=== PATIENT | female | born 1990 | race Hispanic/Latino ===

== ENCOUNTER 2018-07-31 09:20 | Emergency (ER) | payer SELFPAY ==
--- OUTSIDE RECORDS SUMMARY | 2018-07-31 09:23 | XMS REPORT ---
:1990 [facility] Address [address] [place] [address] Dr. Rosales [address] [place] [id number] Care Team Providers Name Role Phone Unavailable Unavailable Unavailable Problems This patient has no known problems. Allergies, Adverse Reactions, Alerts This patient has no known allergies or adverse reactions. Medications This patient has no known medications.
--- NOTE | 2018-07-31 10:55 | EDPHYS ---
Physician Documentation [facility] Name: Connie Peters Age: 28 yrs Sex: Female : 1990 Arrival Date: 07/31/2018 Time: 09:21 Bed 23 Private MD: ED Physician Jordin Juarez HPI: 07/31 10:30 This 28 yrs old Female presents to ER via Ambulatory with complaints of Panic ps1 attack, Medication Refill. 10:30 Patient states that she is out of her anti-depressant medication for the last 5 days. ps1 She states that she had a panic attack this morning. She sees Dr. Shoemaker in [place], has not met appointments and has not arranged for her car to get fixed or other means of transportation. She does not have the prescription strength or frequency for the medications that she takes. She does not appear in distress at this time. . 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 - Social history:: Smoking status: Patient/guardian denies using tobacco, Patient/guardian denies using alcohol. - Ebola Screening: : Patient negative for fever greater than or equal to 101.5 degrees Fahrenheit, and additional compatible Ebola Virus Disease symptoms Patient denies exposure to infectious person Patient denies travel to an Ebola-affected area in the 21 days before illness onset. ROS: 10:50 Constitutional: Negative for fever, chills, and weight loss, Eyes: Negative for injury, ps1 pain, redness, and discharge, Cardiovascular: Negative for chest pain, palpitations, and edema, Respiratory: Negative for shortness of breath, cough, wheezing, and pleuritic chest pain, Abdomen/GI: Negative for abdominal pain, nausea, vomiting, diarrhea, and constipation, MS/Extremity: Negative for injury and deformity, Skin: Negative for injury, rash, and discoloration, Neuro: Negative for headache, weakness, numbness, tingling, and seizure. 10:50 Psych: Positive for anxiety. Exam: 10:50 Constitutional: This is a well developed, well nourished patient who is awake, alert, ps1 and in no acute distress. Head/Face: Normocephalic, atraumatic. Eyes: Pupils equal round and reactive to light, extra-ocular motions intact. Lids and lashes normal. Conjunctiva and sclera are non-icteric and not injected. Cardiovascular: Regular rate and rhythm. No gallops, murmurs, or rubs. Normal PMI, no JVD. No pulse deficits. Respiratory: Lungs have equal breath sounds bilaterally, clear to auscultation and percussion. No rales, rhonchi or wheezes noted. No increased work of breathing, no retractions or nasal flaring. Abdomen/GI: Soft, non-tender, with normal bowel sounds. No distension or tympany. No guarding or rebound. No evidence of tenderness throughout. Skin: Warm, dry with normal turgor. Normal color with no rashes, no lesions, and no evidence of cellulitis. MS/ Extremity: Pulses equal, no cyanosis. Neurovascular intact. Full, normal range of motion. Neuro: Awake and alert, GCS 15, oriented to person, place, time, and situation. Cranial nerves II-XII grossly intact. Sensory grossly intact. Psych: Awake, alert, with orientation to person, place and time. Behavior, mood, and affect are within normal limits. Vital Signs: 09:43 BP 129 / 78; Pulse 89; Resp 18; Temp 98.2(O); Pulse Ox 100% on R/A; Weight 90.72 kg; hj Height 5 ft. 0 in. (152.40 cm); Pain 0/10; 09:43 Body Mass Index 39.06 (90.72 kg, 152.40 cm) MDM: 10:50 Data reviewed: vital signs, nurses notes, and as a result, I will discharge patient. ED ps1 course: Pt called Psych office and RN confirmed rx. However, patient has not followed up for over a year. Will give one week of medications and discharge patient. . 10:54 Patient medically screened. ps1 Administered Medications: No medications were administered Disposition: 07/31/18 10:54 Discharged to Home. Impression: Medication Non-Compliance, Panic Attack, Anxiety. - Condition is Stable. - Discharge Instructions: Generalized Anxiety Disorder. - Prescriptions for trazodone 100 mg Oral tablet - take 1 tablet by ORAL route Every night; 7 tablet. Celexa 20 mg Oral Tablet - take 1.5 tablet by ORAL route once daily; 12 tablet. - Medication Reconciliation Form, Thank You Letter, Antibiotic Education, Prescription Opioid Use form. - Follow up: Private Physician; When: Psychiatry-Dr. Shoemaker. Follow up: Emergency Department; When: As needed; Reason: Worsening of condition. - Problem is chronic. - Symptoms have worsened. Signatures: Kimberley Gupta RN RN aj1 Vishal Robertson RN RN hj Jordin Juarez MD MD ps1 Corrections: (The following items were deleted from the chart) 11:01 10:54 07/31/2018 10:54 Discharged to Home. Impression: Medication Non-Compliance; Panic aj1 Attack; Anxiety. Condition is Stable. Forms are Medication Reconciliation Form, Thank You Letter, Antibiotic Education, Prescription Opioid Use. Follow up: Private Physician; When: Psychiatry-Dr. Shoemaker. Follow up: Emergency Department; When: As needed; Reason: Worsening of condition. Problem is chronic. Symptoms have worsened. ps1
--- NOTE | 2018-07-31 10:55 | ER ---
Nurse's Notes [facility] Name: Connie Peters Age: 28 yrs Sex: Female : 1990 Arrival Date: 07/31/2018 Time: 09:21 Bed 23 Private MD: Diagnosis: Medication Non-Compliance;Panic Attack;Anxiety Presentation: 07/31 09:40 Presenting complaint: Patient states: i think i have anxiety flare up today, i felt hj dizzy, im felt overwhelm today, my hear is raising; im on a lot of stress lately; hx o of depression; denies hurting self and other; reports N/V; been out of meds for 3-4 days ago;. Transition of care: patient was not received from another setting of care. Onset of symptoms was July 31, 2018. Risk Assessment: Do you want to hurt yourself or someone else? Patient reports no desire to harm self or others. Initial Sepsis Screen: Does the patient meet any 2 criteria? No. Patient's initial sepsis screen is negative. Does the patient have a suspected source of infection? No. Patient's initial sepsis screen is negative. Care prior to arrival: None. 09:40 Method Of Arrival: Ambulatory 09:40 Acuity: KYM 4 hj Triage Assessment: 09:43 General: Appears in no apparent distress. uncomfortable, Behavior is calm, cooperative, hj appropriate for age. Pain: Denies pain. 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 - Social history:: Smoking status: Patient/guardian denies using tobacco, Patient/guardian denies using alcohol. - Ebola Screening: : Patient negative for fever greater than or equal to 101.5 degrees Fahrenheit, and additional compatible Ebola Virus Disease symptoms Patient denies exposure to infectious person Patient denies travel to an Ebola-affected area in the 21 days before illness onset. Screenin:43 Abuse screen: Denies threats or abuse. Denies injuries from another. Nutritional hj screening: No deficits noted. Tuberculosis screening: No symptoms or risk factors identified. Fall Risk None identified. Assessment: 10:03 General: Appears comfortable, Behavior is cooperative, anxious, crying. Pain: Denies aj1 pain. Neuro: Level of Consciousness is awake, alert, obeys commands, Oriented to person, place, time, situation, Moves all extremities. Full function Gait is steady, Speech is normal, Facial symmetry appears normal, Reports dizziness. Neuro: Reports Patient reports having an episode this morning where she felt overwhelmed, like everything going on in her life was too much to handle and she started to feel dizzy and have palpitations. Patient reports a history of anxiety, states that these are her normal anxiety symptoms but this episode is much more severe than her past episodes. Patient states that she is under a lot of acute stress at the moment.. Cardiovascular: Reports palpitations, Patient's skin is warm and dry. Respiratory: Airway is patent Respiratory effort is even, unlabored, Respiratory pattern is regular, symmetrical. GI: No signs and/or symptoms were reported involving the gastrointestinal system. : No signs and/or symptoms were reported regarding the genitourinary system. EENT: No signs and/or symptoms were reported regarding the EENT system. Derm: No signs and/or symptoms reported regarding the dermatologic system. Skin is pink, warm \T\ dry. normal. Musculoskeletal: No signs and/or symptoms reported regarding the musculoskeletal system. Circulation, motion, and sensation intact. 11:01 Reassessment: Patient appears in no apparent distress at this time. No changes from aj1 previously documented assessment. Patient and/or family updated on plan of care and expected duration. Pain level reassessed. Patient is alert, oriented x 3, equal unlabored respirations, skin warm/dry/pink. Vital Signs: 09:43 BP 129 / 78; Pulse 89; Resp 18; Temp 98.2(O); Pulse Ox 100% on R/A; Weight 90.72 kg; hj Height 5 ft. 0 in. (152.40 cm); Pain 0/10; 09:43 Body Mass Index 39.06 (90.72 kg, 152.40 cm) ED Course: 09:21 Patient arrived in ED. as 09:42 Triage completed. hj 09:43 Arm band placed on right wrist. hj 09:45 Patient has correct armband on for positive identification. Placed in gown. Bed in low hj position. Call light in reach. Side rails up X 1. 10:02 Jordin Juarez MD is Attending Physician. ps1 10:03 Kimberley Gupta, RN is Primary Nurse. aj1 10:03 No provider procedures requiring assistance completed. aj1 11:01 Patient did not have IV access during this emergency room visit. aj1 Administered Medications: No medications were administered Outcome: 10:54 Discharge ordered by MD. ps1 11:01 Discharged to home ambulatory. aj1 11:01 Condition: good 11:01 Discharge instructions given to patient, Instructed on discharge instructions, follow up and referral plans. medication usage, Demonstrated understanding of instructions, follow-up care, medications, Prescriptions given X 2. 11:01 Patient left the ED. aj1 Signatures: Kimberley Gupta, [place] RN Isis Ayala Henry, RN RN Jordin Juarez MD MD ps1 Corrections: (The following items were deleted from the chart) 09:42 09:39 Presenting complaint: hj hj 09:45 09:43 Pulse 89bpm; Resp 18bpm; Pulse Ox 100% RA; Temp 98.2F Oral; 90.72 kg; Height 5 hj ft. 0 in.; BMI: 39.0; Pain 0/10; hj
[2018-07-31 11:14] VITALS: BP 129/78; TEMP 98.2; O2SAT 100
== END 2018-07-31 11:01 | disposition home or self-care (01) ==
LOC: ER 09:20
DX: Z91.19 Patient's noncompliance with other medical treatment and regimen (principal); F41.0 Panic disorder [episodic paroxysmal anxiety]; F41.9 Anxiety disorder, unspecified; J45.909 Unspecified asthma, uncomplicated; F32.9 Major depressive disorder, single episode, unspecified; Z88.0 Allergy status to penicillin; Z76.0 Encounter for issue of repeat prescription
CPT/HCPCS: 99282

== ENCOUNTER 2018-11-11 23:29 | Emergency (ER) | payer SELFPAY ==
--- OUTSIDE RECORDS SUMMARY | 2018-11-11 23:31 | XMS REPORT ---
:1990 [facility] Address [address] [place] [address] Dr. Rosales [address] [place] [address] Care Team Providers Name Role Phone Unavailable Unavailable Unavailable Problems This patient has no known problems. Allergies, Adverse Reactions, Alerts This patient has no known allergies or adverse reactions. Medications This patient has no known medications.
[2018-11-12 02:11] LABS: Absolute Lymphocytes (CBC) 3.1 K/uL (0.7-4.9); Basophils % 0.6 % (0-1.3); Hematocrit 40.3 % (36.0-45.0); Lymphocytes % 35.9 % (15.3-44.8); MPV 9.1 fL (7.6-11.3); Monocytes % 7.6 % (3.3-12.3); RBC Red Blood Cell Count 4.59 M/uL (3.86-4.86)
[2018-11-12] MEDS ORDERED: FAMOTIDINE 20 MG/2 ML VIAL IV ONE (02:21)
[2018-11-12] MEDS ORDERED: KETOROLAC 30 MG/ML INJ ONE (02:21)
[2018-11-12] MEDS ORDERED: ONDANSETRON 4 MG/2 ML VIAL ONE (02:21)
[2018-11-12 02:28] LABS: ALT/SGPT 24 U/L (12-78); AST/SGOT 12 U/L (15-37); Albumin 3.9 g/dL (3.4-5.0); Alkaline Phosphatase 62 U/L (45-117); BUN Blood Urea Nitrogen 11 mg/dL (7-18); Bicarbonate 29 mmol/L (21-32); Bilirubin Direct < 0.1 mg/dL (0-0.2); Bilirubin Total 0.3 mg/dL (0.2-1.0); Glucose Level 90 mg/dL (74-106); Lipase 460 U/L (73-393); Potassium 3.6 mmol/L (3.5-5.1); Protein, Total 7.5 g/dL (6.4-8.2); Sodium Level 142 mmol/L (136-145)
[2018-11-12 05:30] LABS: Urine Blood 3+ (NEG); Urine Glucose NEGATIVE (NEG); Urine Protein TRACE (NEG); Urine Specific Gravity >1.030 (1.005-1.030); Urine pH 5.5 (5.0-7.0)
[2018-11-12 05:30] LABS: Calcium Oxalate Crystals- Ur MODERATE (NONE SEEN); Urine Bacteria <20 /HPF (<20); Urine Culture Reflex Order NOT NEEDED; Urine Mucus 2+ /HPF (NONE SEEN); Urine RBC NONE SEEN /HPF (NONE SEEN)
--- NOTE | 2018-11-12 05:36 | ER ---
Nurse's Notes [facility] Name: Connie Peters Age: 28 yrs Sex: Female : 1990 Arrival Date: 11/11/2018 Time: 23:33 Bed 16 Private MD: Diagnosis: acute right upper quadrant abdominal pain;vomiting Presentation: 11/11 23:40 Presenting complaint: Patient states: Diarrhea for one week, vomiting yesterday, RUQ la1 pain that started today. Transition of care: patient was not received from another setting of care. Onset of symptoms was November 11, 2018. Risk Assessment: Do you want to hurt yourself or someone else? Patient reports no desire to harm self or others. Initial Sepsis Screen: Does the patient meet any 2 criteria? No. Patient's initial sepsis screen is negative. Does the patient have a suspected source of infection? No. Patient's initial sepsis screen is negative. Care prior to arrival: None. 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 - Social history:: Smoking status: Patient/guardian denies using tobacco. - Ebola Screening: : No symptoms or risks identified at this time. - Family history:: not pertinent. - Hospitalizations: : No recent hospitalization is reported. Screenin/08 01:15 Abuse screen: Denies threats or abuse. Nutritional screening: No deficits noted. jb4 Tuberculosis screening: No symptoms or risk factors identified. Fall Risk None identified. Assessment: 01:15 General: Appears in no apparent distress. uncomfortable, Behavior is calm, cooperative, jb4 appropriate for age. Pain: Complains of pain in abdomen Pain does not radiate. Pain currently is 9 out of 10 on a pain scale. Quality of pain is described as sharp. Neuro: Level of Consciousness is awake, alert, obeys commands, Oriented to person, place, time, situation. Cardiovascular: Patient's skin is warm and dry. Respiratory: Airway is patent Respiratory effort is even, unlabored, Respiratory pattern is regular, symmetrical. GI: Abdomen is non-distended, obese, Bowel sounds present X 4 quads. Abd is soft X 4 quads Abd is non tender in left upper quadrant, right lower quadrant and left lower quadrant Abdomen is tender to palpation in right upper quadrant Reports diarrhea, nausea, vomiting. : No signs and/or symptoms were reported regarding the genitourinary system. EENT: No signs and/or symptoms were reported regarding the EENT system. Derm: Skin is intact, Skin is pink, warm \T\ dry. Musculoskeletal: Circulation, motion, and sensation intact. Range of motion: intact in all extremities. 02:15 Reassessment: Patient appears in no apparent distress at this time. Patient and/or jb4 family updated on plan of care and expected duration. Pain level reassessed. Patient is alert, oriented x 3, equal unlabored respirations, skin warm/dry/pink. 03:15 Reassessment: Patient appears in no apparent distress at this time. Patient and/or jb4 family updated on plan of care and expected duration. Pain level reassessed. Pt is resting in bed with eyes closed, no s/s of pain or distress noted. respirations even and unlabored. 04:15 Reassessment: Patient appears in no apparent distress at this time. No changes from jb4 previously documented assessment. Patient and/or family updated on plan of care and expected duration. Pain level reassessed. 05:48 Reassessment: Patient appears in no apparent distress at this time. Patient and/or jb4 family updated on plan of care and expected duration. Pain level reassessed. Patient is alert, oriented x 3, equal unlabored respirations, skin warm/dry/pink. Pt ambulated out of ED with significant other w/ steady gait, verbalized understanding of d/c and follow up instructions, denies questions or concerns. Vital Signs: 11/11 23:39 BP 121 / 86; Pulse 55; Resp 16; Temp 97.4; Pulse Ox 98% on R/A; Weight 90.72 kg; Height la1 5 ft. 4 in. (162.56 cm); 11/12 01:10 BP 120 / 81; Pulse 59; Resp 16; Pulse Ox 95% on R/A; mt 02:36 BP 119 / 86; Pulse 50; Resp 14; Pulse Ox 97% on R/A; mt 03:33 BP 109 / 71; Pulse 60; Resp 16; Pulse Ox 99% on R/A; jb4 04:08 BP 105 / 62; Pulse 52; Resp 16; Pulse Ox 96% on R/A; mt 05:54 BP 101 / 60; Pulse 61; Resp 16; Pulse Ox 97% on R/A; jb4 11/11 23:39 Body Mass Index 34.33 (90.72 kg, 162.56 cm) la1 ED Course: 11/11 23:33 Patient arrived in ED. am2 23:39 Arm band placed on right wrist. la1 23:41 Triage completed. la1 11/12 00:59 Colt Casey, RN is Primary Nurse. jb4 01:15 Silver De León MD is Attending Physician. wa 01:15 Patient has correct armband on for positive identification. Placed in gown. Bed in low jb4 position. Call light in reach. Side rails up X 1. Pulse ox on. NIBP on. 01:18 Urine collected: clean catch specimen, cloudy. Inserted saline lock: 20 gauge in left mt antecubital area, using aseptic technique. Blood collected. 02:07 Radiology exam delayed due to lab results not completed at this time. (BUN/Creatinine) mw3 test not completed at this time. 03:05 CT Abd/Pelvis - IV Contrast Only In Process Unspecified. EDMS 05:35 Silver Ibarra MD is Referral Physician. mt 05:57 No provider procedures requiring assistance completed. IV discontinued, intact, jb4 bleeding controlled, No redness/swelling at site. Pressure dressing applied. Administered Medications: 02:00 Drug: TORadol 30 mg Route: IVP; Site: left antecubital; jb4 05:53 Follow up: Response: No adverse reaction; Pain is decreased jb4 02:01 Drug: Pepcid 20 mg Route: IVP; Site: left antecubital; jb4 02:30 Follow up: Response: No adverse reaction jb4 02:02 Drug: Zofran 4 mg Route: IVP; Site: left antecubital; jb4 02:30 Follow up: Response: No adverse reaction; Nausea is decreased jb4 Outcome: 05:35 Discharge ordered by . wa 05:57 Discharged to home ambulatory, with significant other. [facility] [place] 05:57 Discharge instructions given to patient, significant other, Instructed on discharge instructions, follow up and referral plans. medication usage, Demonstrated understanding of instructions, follow-up care, medications, Prescriptions given X 3. 05:57 Condition: stable jb4 05:58 Patient left the ED. jb4 Signatures: Dispatcher [employer] EDMS José Del Real, RN RN la1 Colt Casey RN RN jb4 Giulia Stanford am2 Ayla Quintana nm Silver De León MD MD wa Willis, Michelle 3 Corrections: (The following items were deleted from the chart) 05:53 02:30 Response: No adverse reaction; Nausea is decreased jb4 jb4 05:55 05:48 Reassessment: Patient appears in no apparent distress at this time. Patient jb4 and/or family updated on plan of care and expected duration. Pain level reassessed. Patient is alert, oriented x 3, equal unlabored respirations, skin warm/dry/pink. jb4 05:56 02:36 BP 109 / 71; Pulse 60bpm; Resp 16bpm; Pulse Ox 99% RA; mt jb4
--- NOTE | 2018-11-12 05:36 | EDPHYS ---
Physician Documentation [facility] Name: Connie Peters Age: 28 yrs Sex: Female : 1990 Arrival Date: 11/11/2018 Time: 23:33 Bed 16 Private MD: ED Physician Silver De León HPI: 11/12 04:21 This 28 yrs old Female presents to ER via Ambulatory with complaints of wa Abdominal Pain. 04:24 This 28 yrs old Female presents to ER via Ambulatory with complaints of wa Abdominal Pain. 04:24 The patient presents with abdominal pain in the epigastric area, in the right upper wa quadrant. Onset: The symptoms/episode began/occurred 1 day(s) ago. The symptoms radiate to Associated signs and symptoms: Pertinent positives: nausea and vomiting, Pertinent negatives: diarrhea, dysuria, fever. The symptoms are described as dull. Modifying factors: The symptoms are alleviated by nothing, the symptoms are aggravated by nothing. Severity of pain: At its worst the pain was moderate in the emergency department the pain is unchanged. The patient has not experienced similar symptoms in the past. The patient has not recently seen a physician. states R sided pain that radiate to back with assoc vomiting. denies SOB. . 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 - Social history:: Smoking status: Patient/guardian denies using tobacco. - Ebola Screening: : No symptoms or risks identified at this time. - Family history:: not pertinent. - Hospitalizations: : No recent hospitalization is reported. ROS: 11/12 04:26 Constitutional: Negative for fever, chills, and weight loss, Eyes: Negative for injury, wa pain, redness, and discharge, ENT: Negative for injury, pain, and discharge, Neck: Negative for injury, pain, and swelling, Cardiovascular: Negative for chest pain, palpitations, and edema, Respiratory: Negative for shortness of breath, cough, wheezing, and pleuritic chest pain, Back: Negative for injury and pain, : Negative for injury, bleeding, discharge, and swelling, MS/Extremity: Negative for injury and deformity, Skin: Negative for injury, rash, and discoloration, Neuro: Negative for headache, weakness, numbness, tingling, and seizure, Psych: Negative for depression, anxiety, suicide ideation, homicidal ideation, and hallucinations. Abdomen/GI: Positive for abdominal pain, nausea and vomiting, Negative for diarrhea, constipation. All other systems are negative. Exam: 04:26 Constitutional: This is a well developed, well nourished patient who is awake, alert, wa and in no acute distress. Head/Face: Normocephalic, atraumatic. Eyes: Pupils equal round and reactive to light, extra-ocular motions intact. Lids and lashes normal. Conjunctiva and sclera are non-icteric and not injected. Cornea within normal limits. Periorbital areas with no swelling, redness, or edema. ENT: Nares patent. No nasal discharge, no septal abnormalities noted. Tympanic membranes are normal and external auditory canals are clear. Oropharynx with no redness, swelling, or masses, exudates, or evidence of obstruction, uvula midline. Mucous membranes moist. Neck: Trachea midline, no thyromegaly or masses palpated, and no cervical lymphadenopathy. Supple, full range of motion without nuchal rigidity, or vertebral point tenderness. No Meningismus. Chest/axilla: Normal chest wall appearance and motion. Nontender with no deformity. No lesions are appreciated. Cardiovascular: Regular rate and rhythm with a normal S1 and S2. No gallops, murmurs, or rubs. Normal PMI, no JVD. No pulse deficits. Respiratory: Lungs have equal breath sounds bilaterally, clear to auscultation and percussion. No rales, rhonchi or wheezes noted. No increased work of breathing, no retractions or nasal flaring. Back: No spinal tenderness. No costovertebral tenderness. Full range of motion. Skin: Warm, dry with normal turgor. Normal color with no rashes, no lesions, and no evidence of cellulitis. MS/ Extremity: Pulses equal, no cyanosis. Neurovascular intact. Full, normal range of motion. Neuro: Awake and alert, GCS 15, oriented to person, place, time, and situation. Cranial nerves II-XII grossly intact. Motor strength 5/5 in all extremities. Sensory grossly intact. Cerebellar exam normal. Normal gait. 04:26 Abdomen/GI: Inspection: abdomen appears normal, Bowel sounds: normal, in all quadrants, Palpation: moderate abdominal tenderness, in the epigastric area and right upper quadrant. Vital Signs: 11/11 23:39 BP 121 / 86; Pulse 55; Resp 16; Temp 97.4; Pulse Ox 98% on R/A; Weight 90.72 kg; Height la1 5 ft. 4 in. (162.56 cm); 11/12 01:10 BP 120 / 81; Pulse 59; Resp 16; Pulse Ox 95% on R/A; mt 02:36 BP 119 / 86; Pulse 50; Resp 14; Pulse Ox 97% on R/A; mt 03:33 BP 109 / 71; Pulse 60; Resp 16; Pulse Ox 99% on R/A; jb4 04:08 BP 105 / 62; Pulse 52; Resp 16; Pulse Ox 96% on R/A; mt 05:54 BP 101 / 60; Pulse 61; Resp 16; Pulse Ox 97% on R/A; jb4 11/11 23:39 Body Mass Index 34.33 (90.72 kg, 162.56 cm) la1 MDM: 01:15 Patient medically screened. nh 04:26 Differential diagnosis: h/o cholecystectomy. will r/o pancreatitis. consider ductal wa stone. colitis? enteritis?. 05:31 Data reviewed: vital signs, nurses notes, lab test result(s). Test interpretation: by nh ED physician or midlevel provider: CT abd/pelvis: no acute abnml. 05:32 Test interpretation: by ED physician or midlevel provider: labs noted wnl. . Response nh to treatment: the patient's symptoms have markedly improved after treatment. ED course: pain improved. states only a bit sore to touch in the area. . 11/12 01:19 Order name: Basic Metabolic Panel tn 11/12 01:19 Order name: CBC with Diff tn 11/12 01:19 Order name: Creatinine for Radiology tn 11/12 01:19 Order name: Hepatic Function; Complete Time: 03:52 mt 11/12 01:19 Order name: Lipase; Complete Time: 03:52 tn 11/12 01:19 Order name: Urine Dipstick--Ancillary (enter results); Complete Time: 05:32 ar5 11/12 01:19 Order name: Urine --Ancillary (enter results); Complete Time: 05:32 ar5 11/12 01:19 Order name: Basic Metabolic Panel; Complete Time: 03:52 EDMS 11/12 01:19 Order name: CBC with Automated Diff; Complete Time: 03:52 EDMS 11/12 01:20 Order name: Creatinine (Radiology Only); Complete Time: 03:52 EDMS 11/12 01:39 Order name: CT Abd/Pelvis - IV Contrast Only nh 11/12 04:54 Order name: Urine Microscopic Only; Complete Time: 05:32 nh 11/12 01:19 Order name: IV Saline Lock; Complete Time: 01:19 mt 11/12 01:19 Order name: Labs collected and sent; Complete Time: 01:19 mt 11/12 01:19 Order name: Urine Dipstick-Ancillary (obtain specimen); Complete Time: 01:19 mt 11/12 01:19 Order name: Urine Test (obtain specimen); Complete Time: 01:19 mt Administered Medications: 02:00 Drug: TORadol 30 mg Route: IVP; Site: left antecubital; jb4 05:53 Follow up: Response: No adverse reaction; Pain is decreased jb4 02:01 Drug: Pepcid 20 mg Route: IVP; Site: left antecubital; jb4 02:30 Follow up: Response: No adverse reaction jb4 02:02 Drug: Zofran 4 mg Route: IVP; Site: left antecubital; jb4 02:30 Follow up: Response: No adverse reaction; Nausea is decreased jb4 Disposition: 11/12/18 05:35 Discharged to Home. Impression: acute right upper quadrant abdominal pain, vomiting. - Condition is Stable. - Discharge Instructions: Nausea and Vomiting, Adult, [id number], Abdominal Pain, Adult, [id number]. - Prescriptions for Cipro 500 mg Oral Tablet - take 1 tablet by ORAL route every 12 hours for 7 days; 14 tablet. Zofran 4 mg Oral Tablet - take 1 tablet by ORAL route every 12 hours As needed; 20 tablet. Flagyl 500 mg Oral Tablet - take 1 tablet by ORAL route every 8 hours for 7 days; 21 tablet. - Work release form, Medication Reconciliation Form, Thank You Letter, Antibiotic Education, Prescription Opioid Use form. - Follow up: Silver Ibarra MD; When: 1 - 2 days; Reason: Recheck today's complaints. - Problem is new. - Symptoms have improved. - Notes: take medication as prescribed. follow up with the gastro doctor as discussed for further evaluation Signatures: Dispatcher [employer] EDMS José Del Real, RN RN la1 Colt Casey RN RN jb4 Ayla Quintana tn Silver De León MD MD wa Corrections: (The following items were deleted from the chart) 05:58 05:35 11/12/2018 05:35 Discharged to Home. Impression: acute right upper quadrant jb4 abdominal pain; vomiting. Condition is Stable. Forms are Medication Reconciliation Form, Thank You Letter, Antibiotic Education, Prescription Opioid Use. Follow up: Silver Ibarra; When: 1 - 2 days; Reason: Recheck today's complaints. Problem is new. Symptoms have improved. elsa
[2018-11-12 06:09] VITALS: TEMP 97.4
[2018-11-12 06:17] VITALS: BP 101/60; O2SAT 97
--- NOTE | 2018-11-12 10:21 | RAD REPORT ---
EXAM DESCRIPTION: CT - Abdomen Pelvis W Contrast - 11/12/2018 3:55 am CLINICAL HISTORY: The patient is 28 years old and is Female; RUQ abd pain TECHNIQUE: Axial computed tomography images of the abdomen and pelvis with intravenous contrast. S agittal and coronal reformatted images were created and reviewed. This CT exam was performed using one or more of the following dose reduction techniques: automated exposure control, adjustment of t he mA and/or kV according to patient size, and/or use of iterative reconstruction technique. COMPARISON: No relevant prior studies available. FINDINGS: LUNG BASES: Unremarkable. No mass. No consolidation. ABDOMEN: LIVER: Unremarkable. No mass. GALLBLADDER AND BILE DUCTS: Surgical clips are present in the right upper quadrant, consistent w ith previous cholecystectomy. PANCREAS: No ductal dilation. No mass. SPLEEN: Unremarkable. ADRENALS: Unremarkable. No mass. KIDNEYS AND URETERS: Unremarkable. No solid mass. No hydronephrosis. STOMACH AND BOWEL: The stomach is decompressed. The small bowel is normal in caliber. Stool is p resent throughout the colon. Scattered colonic diverticula are noted without surrounding inflammation . There is no bowel obstruction. PELVIS: APPENDIX: The appendix is normal in caliber without surrounding inflammation. BLADDER: The bladder is not well distended. REPRODUCTIVE: Unremarkable as visualized. ABDOMEN and PELVIS: INTRAPERITONEAL SPACE: Unremarkable. No free air. No significant fluid collection. BONES/JOINTS: No acute fracture. SOFT TISSUES: A small 2 cm left ovarian cyst is present. No follow-up imaging is recommended. Th e uterus and right ovary are normal. Small fat-containing ventral wall hernia is present. VASCULATURE: Unremarkable. No abdominal aortic aneurysm. LYMPH NODES: Unremarkable. No enlarged lymph nodes. IMPRESSION: No acute findings on this contrasted CT of the abdomen and pelvis to explain the patient 's symptoms. Chronic findings as above. Electronically signed by: Re Delgado MD 11/12/2018 3:47 AM CDT Due to temporary technical issues with the PACS/[employer] reporting system, reports are being signed by the in house radiologist as a courtesy to ensure prompt reporting. The interpreting radiologist is jessica villalta responsible for the content of the report. Due to temporary technical issues with the PACS/[employer] reporting system, reports are being signed by the in house radiologist as a courtesy to ensure prompt reporting. The interpreting radiologist is jessica villalta responsible for the content of the report.
== END 2018-11-12 05:58 | disposition home or self-care (01) ==
LOC: ER 23:29
DX: R11.10 Vomiting, unspecified (principal); Z88.0 Allergy status to penicillin
CPT/HCPCS: 36415; 74177; 80048; 80076; 81003; 81015; 81025; 83690; 85025; 96374; 96375; 99284; J2405; Q9967

== ENCOUNTER 2019-03-29 10:29 | Emergency (ER) | payer SELFPAY ==
--- OUTSIDE RECORDS SUMMARY | 2019-03-29 10:31 | XMS REPORT ---
:1990 [facility] Address [address] [place] [address] Dr. Rosales [address] [place] [id number] Care Team Providers Name Role Phone Unavailable Unavailable Unavailable Problems This patient has no known problems. Allergies, Adverse Reactions, Alerts This patient has no known allergies or adverse reactions. Medications This patient has no known medications.
[2019-03-29] MEDS ORDERED: hydrOXYzine HCl 25 MG TAB ONE (11:04)
--- NOTE | 2019-03-29 12:13 | EDPHYS ---
Physician Documentation [facility] Name: Connie Peters Age: 28 yrs Sex: Female : 1990 Arrival Date: 03/29/2019 Time: 10:31 Bed 14 Private MD: ED Physician Jose Juan Quiroz HPI: 03/29 11:28 This 28 yrs old Female presents to ER via Ambulatory with complaints of nh Anxiety. 11:28 Onset: The symptoms/episode began/occurred acutely, just prior to arrival. Associated nh signs and symptoms: Pertinent positives: chest pain, shortness of breath, Pertinent negatives: abdominal pain, congestion, constipation, cough, diarrhea, dysuria, earache, fever, headache, nasal discharge, seizure, sore throat, vomiting, wheezing. Modifying factors: The patient symptoms are alleviated by nothing, the patient symptoms are aggravated by nothing. The patient has experienced similar episodes in the past, several times, and the symptoms today are exactly the same, to previous anxiety attack. The patient has not recently seen a physician. Patient was given celexa here before but only takes it when she feels like she needs it. 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 - Social history:: Smoking status: Patient/guardian denies using tobacco. - Ebola Screening: : Patient negative for fever greater than or equal to 101.5 degrees Fahrenheit, and additional compatible Ebola Virus Disease symptoms Patient denies exposure to infectious person Patient denies travel to an Ebola-affected area in the 21 days before illness onset No symptoms or risks identified at this time. ROS: 11:28 Constitutional: Negative for fever, chills, and weight loss, Eyes: Negative for injury, nh pain, redness, and discharge, ENT: Negative for injury, pain, and discharge, Neck: Negative for injury, pain, and swelling, Abdomen/GI: Negative for abdominal pain, nausea, vomiting, diarrhea, and constipation, Back: Negative for injury and pain, : Negative for injury, bleeding, discharge, and swelling, MS/Extremity: Negative for injury and deformity, Skin: Negative for injury, rash, and discoloration, Neuro: Negative for headache, weakness, numbness, tingling, and seizure, Allergy/Immunology: Negative for hives, rash, and allergies, Endocrine: Negative for neck swelling, polydipsia, polyuria, polyphagia, and marked weight changes, Hematologic/Lymphatic: Negative for swollen nodes, abnormal bleeding, and unusual bruising. 11:28 Cardiovascular: Positive for chest pain, Negative for edema, orthopnea, palpitations, paroxysmal nocturnal dyspnea, acute changes. 11:28 Respiratory: Positive for shortness of breath, Negative for cough, dyspnea on exertion, hemoptysis, orthopnea, pleurisy, sputum production, wheezing. 11:28 Psych: Positive for anxiety, depression, Negative for drug dependence, alcohol dependence, auditory hallucinations, visual hallucinations, homicidal ideation, insomnia, suicide gesture, suicidal ideation, acute changes. Exam: 11:28 Constitutional: This is a well developed, well nourished patient who is awake, alert, nh and in no acute distress. Head/Face: Normocephalic, atraumatic. Eyes: Pupils equal round and reactive to light, extra-ocular motions intact. Lids and lashes normal. Conjunctiva and sclera are non-icteric and not injected. Cornea within normal limits. Periorbital areas with no swelling, redness, or edema. ENT: Nares patent. No nasal discharge, no septal abnormalities noted. Tympanic membranes are normal and external auditory canals are clear. Oropharynx with no redness, swelling, or masses, exudates, or evidence of obstruction, uvula midline. Mucous membranes moist. Neck: Trachea midline, no thyromegaly or masses palpated, and no cervical lymphadenopathy. Supple, full range of motion without nuchal rigidity, or vertebral point tenderness. No Meningismus. Chest/axilla: Normal chest wall appearance and motion. Nontender with no deformity. No lesions are appreciated. Cardiovascular: Regular rate and rhythm with a normal S1 and S2. No gallops, murmurs, or rubs. Normal PMI, no JVD. No pulse deficits. Respiratory: Lungs have equal breath sounds bilaterally, clear to auscultation and percussion. No rales, rhonchi or wheezes noted. No increased work of breathing, no retractions or nasal flaring. Abdomen/GI: Soft, non-tender, with normal bowel sounds. No distension or tympany. No guarding or rebound. No evidence of tenderness throughout. Back: No spinal tenderness. No costovertebral tenderness. Full range of motion. Skin: Warm, dry with normal turgor. Normal color with no rashes, no lesions, and no evidence of cellulitis. MS/ Extremity: Pulses equal, no cyanosis. Neurovascular intact. Full, normal range of motion. Neuro: Awake and alert, GCS 15, oriented to person, place, time, and situation. Cranial nerves II-XII grossly intact. Motor strength 5/5 in all extremities. Sensory grossly intact. Cerebellar exam normal. Normal gait. 11:28 Psych: Behavior/mood is anxious, Affect is Oriented to person, place, time, Patient has no thoughts/intents to harm self or others. Judgement / Insight is normal. Delusions/hallucinations are not present. Vital Signs: 10:36 BP 138 / 101; Pulse 87; Resp 22; Temp 97.3; Pulse Ox 99% ; Weight 99.79 kg; Height 5 sv ft. 1 in. (154.94 cm); 11:48 BP 131 / 84; Pulse 68; Resp 17 S; Pulse Ox 100% on R/A; ca1 12:26 BP 132 / 84; Pulse 65; Resp 17 S; Pulse Ox 99% on R/A; ca1 10:36 Body Mass Index 41.57 (99.79 kg, 154.94 cm) sv MDM: 10:37 Patient medically screened. nj 12:12 Data reviewed: vital signs, nurses notes, I have discussed the patient's nj presentation/case with the attending Emergency Department Physician; and as a result, I will discharge patient. Medication response: hydroxyzine. Response to treatment: the patient's symptoms have markedly improved after treatment, and as a result, I will discharge patient. 03/29 10:57 Order name: EKG - Nurse/Tech; Complete Time: 11:01 nj Administered Medications: 11:05 Drug: hydrOXYzine 50 mg Route: PO; ca1 11:46 Follow up: Response: No adverse reaction; Anxiety decreased ca1 Disposition: 13:01 Co-signature as Attending Physician, Jose Juan Quiroz MD I agree with the assessment and kdr plan of care. Disposition: 03/29/19 12:13 Discharged to Home. Impression: Anxiety disorder, unspecified. - Condition is Stable. - Discharge Instructions: Panic Attacks. - Prescriptions for Celexa 20 mg Oral Tablet - take 1.5 tablet by ORAL route once daily; 45 tablet. Hydroxyzine HCl 25 mg Oral Tablet - take 1 tablet by ORAL route every 6 hours As needed; 30 tablet. - Medication Reconciliation Form, Thank You Letter, Antibiotic Education, Prescription Opioid Use, Work release form form. - Follow up: Private Physician; When: 2 - 3 days; Reason: Recheck today's complaints. - Problem is new. - Symptoms are unchanged. Signatures: Iraida Subramanian, RN RN Jose Juan Quiroz MD MD [facility] Lorena Michaud, EMS [facility] nj Caitlin Mittal, RN RN ca1 Corrections: (The following items were deleted from the chart) 12:28 12:13 03/29/2019 12:13 Discharged to Home. Impression: Anxiety disorder, unspecified. ca1 Condition is Stable. Forms are Medication Reconciliation Form, Thank You Letter, Antibiotic Education, Prescription Opioid Use. Follow up: Private Physician; When: 2 - 3 days; Reason: Recheck today's complaints. Problem is new. Symptoms are unchanged. nh
--- NOTE | 2019-03-29 12:13 | ER ---
Nurse's Notes [facility] Name: Connie Peters Age: 28 yrs Sex: Female : 1990 Arrival Date: 03/29/2019 Time: 10:31 Bed 14 Private MD: Diagnosis: Anxiety disorder, unspecified Presentation: 03/29 10:34 Presenting complaint: Patient states: "I don't know if I'm having an anxiety attack or sv not. Everything is tingling." c/o headache. Reports she was off of Celexa for about 3 months and then came back here again because she felt like she was having anxiety again and took a pill yesterday. Transition of care: patient was not received from another setting of care. Onset of symptoms was March 29, 2019. Care prior to arrival: None. 10:34 Method Of Arrival: Ambulatory sv 10:34 Acuity: KYM 4 sv 10:57 Risk Assessment: Do you want to hurt yourself or someone else? Patient reports no ca1 desire to harm self or others. Initial Sepsis Screen: Does the patient meet any 2 criteria? No. Patient's initial sepsis screen is negative. Does the patient have a suspected source of infection? No. Patient's initial sepsis screen is negative. 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 - Social history:: Smoking status: Patient/guardian denies using tobacco. - Ebola Screening: : Patient negative for fever greater than or equal to 101.5 degrees Fahrenheit, and additional compatible Ebola Virus Disease symptoms Patient denies exposure to infectious person Patient denies travel to an Ebola-affected area in the 21 days before illness onset No symptoms or risks identified at this time. Screenin:45 Abuse screen: Denies threats or abuse. Denies injuries from another. Nutritional ca1 screening: No deficits noted. Tuberculosis screening: No symptoms or risk factors identified. Fall Risk None identified. Assessment: 10:45 General: Appears in no apparent distress. Behavior is anxious, crying. Pain: Complains ca1 of pain in mid-sternal area Pain does not radiate. Pain currently is 9 out of 10 on a pain scale. Quality of pain is described as heavy, Pain began 30 min ago. Is continuous, Noted to be crying. Neuro: Level of Consciousness is awake, alert, obeys commands, Oriented to person, place, time, situation, Appropriate for age. Cardiovascular: Heart tones S1 S2 present Capillary refill < 3 seconds Patient's skin is warm and dry. Respiratory: Airway is patent Respiratory effort is even, unlabored, Respiratory pattern is regular, symmetrical, Breath sounds are clear bilaterally. GI: Abdomen is round non-distended, Bowel sounds present X 4 quads. Abd is soft and non tender X 4 quads. : No deficits noted. No signs and/or symptoms were reported regarding the genitourinary system. EENT: No deficits noted. No signs and/or symptoms were reported regarding the EENT system. Derm: Skin is intact, is healthy with good turgor, Skin is pink, warm \\T\\ dry. Musculoskeletal: Circulation, motion, and sensation intact. Capillary refill < 3 seconds. 11:48 Reassessment: Patient appears in no apparent distress at this time. Patient is alert, ca1 oriented x 3, equal unlabored respirations, skin warm/dry/pink. Pt appears calm at this time and reports feeling better. 12:26 Reassessment: Patient appears in no apparent distress at this time. Patient is alert, ca1 oriented x 3, equal unlabored respirations, skin warm/dry/pink. Vital Signs: 10:36 BP 138 / 101; Pulse 87; Resp 22; Temp 97.3; Pulse Ox 99% ; Weight 99.79 kg; Height 5 sv ft. 1 in. (154.94 cm); 11:48 BP 131 / 84; Pulse 68; Resp 17 S; Pulse Ox 100% on R/A; ca1 12:26 BP 132 / 84; Pulse 65; Resp 17 S; Pulse Ox 99% on R/A; ca1 10:36 Body Mass Index 41.57 (99.79 kg, 154.94 cm) sv ED Course: 10:31 Patient arrived in ED. mr 10:35 Triage completed. sv 10:36 Arm band placed on. sv 10:37 Lorena Chris FNP is PHCP. nh 10:37 Jose Juan Quiroz MD is Attending Physician. nh 10:45 Patient has correct armband on for positive identification. Bed in low position. Call ca1 light in reach. Side rails up X 1. Pulse ox on. NIBP on. Warm blanket given. 10:45 No provider procedures requiring assistance completed. Patient did not have IV access ca1 during this emergency room visit. 10:48 Caitlin Mittal, RN is Primary Nurse. ca1 11:12 EKG done, by lay out technician. reviewed by Lorena ASHLEY. at1 Administered Medications: 11:05 Drug: hydrOXYzine 50 mg Route: PO; ca1 11:46 Follow up: Response: No adverse reaction; Anxiety decreased ca1 Outcome: 12:13 Discharge ordered by . mi 12:27 Discharged to home ambulatory. ca1 12:27 Condition: stable 12:27 Discharge instructions given to patient, Instructed on discharge instructions, follow up and referral plans. no drinking with medication, no driving heavy equipment, medication usage, Demonstrated understanding of instructions, follow-up care, medications, Prescriptions given X 2. 12:28 Patient left the ED. ca1 Signatures: Iraida Subramanian RN RN Lorena Michaud FNP FNP mi Dionne Medrano, Giulia, circus artist EKG Tat1 Caitlin Mittal, AUSTIN RN ca1
[2019-03-29 13:21] VITALS: TEMP 97.3
[2019-03-29 13:24] VITALS: BP 132/84; O2SAT 99
--- NOTE | 2019-03-30 14:22 | EKG ---
Test Date: 2019-03-29 Test Time: 11:03:15 County Coroner: JEROD MEASUREMENT RESULTS: Intervals: Rate: 60 FL: 138 QRSD: 86 QT: 418 QTc: 418 [place]: P: 48 FL: 138 QRS: 73 T: 55 INTERPRETIVE STATEMENTS: Normal sinus rhythm with sinus arrhythmia Nonspecific T wave abnormality Abnormal ECG No previous ECG available for comparison Electronically Signed On 03-30-19 14:19:28 VP PATIENT by He Buck
== END 2019-03-29 12:28 | disposition home or self-care (01) ==
LOC: ER 10:29
DX: F41.9 Anxiety disorder, unspecified (principal); Z88.0 Allergy status to penicillin
CPT/HCPCS: 93005; 99284

== ENCOUNTER 2019-04-01 09:46 | Emergency (ER) | payer SELFPAY ==
--- OUTSIDE RECORDS SUMMARY | 2019-04-01 09:49 | XMS REPORT ---
:1990 [facility] Address [address] [place] [address] Dr. Rosales [address] [place] [id number] Care Team Providers Name Role Phone Unavailable Unavailable Unavailable Problems This patient has no known problems. Allergies, Adverse Reactions, Alerts This patient has no known allergies or adverse reactions. Medications This patient has no known medications.
--- NOTE | 2019-04-01 11:58 | EKG ---
Test Date: 2019-04-01 Test Time: 10:08:04 Manufacturing Production Manager: ZACH MEASUREMENT RESULTS: Intervals: Rate: 69 VT: 138 QRSD: 76 QT: 394 QTc: 422 [place]: P: 41 VT: 138 QRS: 71 T: 37 INTERPRETIVE STATEMENTS: Normal sinus rhythm with sinus arrhythmia Normal ECG Compared to ECG 03/29/2019 11:03:15 T-wave abnormality no longer present Electronically Signed On 04-01-19 11:57:53 AVIATION ORDNANCE OFFICER by Durga Gonzales
--- NOTE | 2019-04-01 12:01 | RAD REPORT ---
EXAM DESCRIPTION: RAD - Chest Single View - 04/01/2019 11:56 am CLINICAL HISTORY: CHEST PAIN Chest pain. COMPARISON: CHEST PA AND LAT 2 VIEW dated 06/12/2010 FINDINGS: Portable technique limits examination quality. The lungs are grossly clear. The heart is normal in size. No displaced fractures. IMPRESSION: No acute intrathoracic process suspected.
[2019-04-01 12:44] LABS: Urine Blood 2+ (NEG); Urine Glucose NEGATIVE (NEG); Urine Protein NEGATIVE (NEG); Urine Specific Gravity 1.025 (1.005-1.030); Urine pH 6.5 (5.0-7.0)
--- NOTE | 2019-04-01 13:04 | ER ---
Nurse's Notes [facility] Name: Connie Peters Age: 28 yrs Sex: Female : 1990 Arrival Date: 04/01/2019 Time: 09:48 Bed 17 Private MD: Diagnosis: Anxiety disorder, unspecified;Other chest pain-non cardiac Presentation: 04/01 10:05 Presenting complaint: Patient states: I have anxiety and I have been intermittently la1 taking celexa and whenever I take it I get chest pains, today I took it before work and I got that pain and felt off. Transition of care: patient was not received from another setting of care. Onset of symptoms was April 01, 2019. Risk Assessment: Do you want to hurt yourself or someone else? Patient reports no desire to harm self or others. Initial Sepsis Screen: Does the patient meet any 2 criteria? No. Patient's initial sepsis screen is negative. Does the patient have a suspected source of infection? No. Patient's initial sepsis screen is negative. Care prior to arrival: None. 10:05 Method Of Arrival: Ambulatory la1 10:05 Acuity: KYM 3 la1 Triage Assessment: 11:20 General: Appears in no apparent distress. comfortable, Behavior is cooperative, bp appropriate for age, anxious. Pain: Complains of pain in chest. EENT: No deficits noted. Neuro: No deficits noted. Cardiovascular: Rhythm is sinus rhythm. Respiratory: No deficits noted. GI: No signs and/or symptoms were reported involving the gastrointestinal system. : No signs and/or symptoms were reported regarding the genitourinary system. Derm: No deficits noted. Musculoskeletal: No deficits noted. 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 - Social history:: Smoking status: Patient/guardian denies using tobacco. - Ebola Screening: : No symptoms or risks identified at this time. - Family history:: not pertinent. Screenin:21 Abuse screen: Denies threats or abuse. Denies injuries from another. Nutritional bp screening: No deficits noted. Tuberculosis screening: No symptoms or risk factors identified. Fall Risk None identified. Assessment: 11:21 General: SEE TRIAGE NOTE. bp 13:01 Reassessment: ALL CURRENT ORDERS COMPLETED, DISPO PENDING. la1 13:36 Reassessment: PT D/C HOME AMBULATORY, DX WITH ANXIETY. la1 Vital Signs: 10:07 BP 118 / 81; Pulse 76; Resp 16; Temp 97.3; Pulse Ox 100% on R/A; Weight 90.72 kg; la1 Height 5 ft. 4 in. (162.56 cm); 12:00 BP 114 / 89; Pulse 57; Resp 16; Pulse Ox 98% ; la1 13:37 BP 110 / 81; Pulse 56; Resp 16; Pulse Ox 97% ; la1 10:07 Body Mass Index 34.33 (90.72 kg, 162.56 cm) la1 ED Course: 09:48 Patient arrived in ED. as 10:05 Arm band placed on left wrist. la1 10:06 Triage completed. la1 10:08 EKG completed in triage. Results shown to MD. la1 11:12 Williams Chowdhury MD is Attending Physician. murphy 11:20 Brandon Sethi, RN is Primary Nurse. bp 11:21 Patient has correct armband on for positive identification. Bed in low position. Call bp light in reach. Side rails up X2. Pulse ox on. NIBP on. 11:26 Urine collected: clean catch specimen, clear. 3 11:56 Chest Single View XRAY In Process Unspecified. EDMS 13:36 No provider procedures requiring assistance completed. Patient did not have IV access la1 during this emergency room visit. Patient maintains SpO2 saturation greater than 95% on room air. Administered Medications: No medications were administered Outcome: 13:03 Discharge ordered by . [facility] 13:36 Discharged to home ambulatory. la1 13:36 Condition: stable 13:36 Discharge instructions given to patient, Instructed on discharge instructions, follow up and referral plans. medication usage, Demonstrated understanding of instructions, follow-up care, medications, Prescriptions given X 1. 13:37 Patient left the ED. la1 Signatures: Dispatcher [employer] EDCO Williams Chowdhury MD MD cha Martinez, Amelia as Attema, Lee RN RN md1 Veena Briscoe [facility] Brandon Sethi RN RN bp Corrections: (The following items were deleted from the chart) 12:59 12:56 BP 114 / 89; Pulse 57bpm; Resp 16bpm; Pulse Ox 98%; la1 la1
--- NOTE | 2019-04-01 13:04 | EDPHYS ---
Physician Documentation [facility] Name: Connie Peters Age: 28 yrs Sex: Female : 1990 Arrival Date: 04/01/2019 Time: 09:48 Bed 17 Private MD: ED Physician Williams Chowdhury HPI: 04/01 12:59 This 28 yrs old Female presents to ER via Ambulatory with complaints of Chest murphy Pain, Anxiety. 12:59 The patient or guardian reports chest pain that is located primarily in the anterior murphy chest wall, bilaterally. The pain does not radiate. Associated signs and symptoms: Pertinent positives: anxiety. The chest pain is described as aching. Duration: The patient or guardian reports a single episode, that is still ongoing. Modifying factors: The symptoms are alleviated by rest, the symptoms are aggravated by anxiety. Severity of pain: At its worst the pain was mild in the emergency department the pain is unchanged. The patient has experienced similar episodes in the past, a few times. 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 - Social history:: Smoking status: Patient/guardian denies using tobacco. - Ebola Screening: : No symptoms or risks identified at this time. - Family history:: not pertinent. ROS: 12:59 Constitutional: Negative for fever, chills, and weight loss, Eyes: Negative for injury, murphy pain, redness, and discharge, ENT: Negative for injury, pain, and discharge, Neck: Negative for injury, pain, and swelling, Respiratory: Negative for shortness of breath, cough, wheezing, and pleuritic chest pain, Abdomen/GI: Negative for abdominal pain, nausea, vomiting, diarrhea, and constipation, Back: Negative for injury and pain, : Negative for injury, bleeding, discharge, and swelling, MS/Extremity: Negative for injury and deformity, Skin: Negative for injury, rash, and discoloration, Neuro: Negative for headache, weakness, numbness, tingling, and seizure, Allergy/Immunology: Negative for hives, rash, and allergies, Endocrine: Negative for neck swelling, polydipsia, polyuria, polyphagia, and marked weight changes, Hematologic/Lymphatic: Negative for swollen nodes, abnormal bleeding, and unusual bruising. 12:59 Cardiovascular: Positive for chest pain, palpitations. 12:59 Psych: Positive for anxiety. Exam: 12:59 Constitutional: This is a well developed, well nourished patient who is awake, alert, murphy and in no acute distress. Head/Face: Normocephalic, atraumatic. Eyes: Pupils equal round and reactive to light, extra-ocular motions intact. Lids and lashes normal. Conjunctiva and sclera are non-icteric and not injected. Cornea within normal limits. Periorbital areas with no swelling, redness, or edema. ENT: Nares patent. No nasal discharge, no septal abnormalities noted. Tympanic membranes are normal and external auditory canals are clear. Oropharynx with no redness, swelling, or masses, exudates, or evidence of obstruction, uvula midline. Mucous membranes moist. Neck: Trachea midline, no thyromegaly or masses palpated, and no cervical lymphadenopathy. Supple, full range of motion without nuchal rigidity, or vertebral point tenderness. No Meningismus. Chest/axilla: Normal chest wall appearance and motion. Nontender with no deformity. No lesions are appreciated. Cardiovascular: Regular rate and rhythm with a normal S1 and S2. No gallops, murmurs, or rubs. Normal PMI, no JVD. No pulse deficits. Respiratory: Lungs have equal breath sounds bilaterally, clear to auscultation and percussion. No rales, rhonchi or wheezes noted. No increased work of breathing, no retractions or nasal flaring. Abdomen/GI: Soft, non-tender, with normal bowel sounds. No distension or tympany. No guarding or rebound. No evidence of tenderness throughout. Back: No spinal tenderness. No costovertebral tenderness. Full range of motion. Female : Normal external genitalia. Skin: Warm, dry with normal turgor. Normal color with no rashes, no lesions, and no evidence of cellulitis. MS/ Extremity: Pulses equal, no cyanosis. Neurovascular intact. Full, normal range of motion. Neuro: Awake and alert, GCS 15, oriented to person, place, time, and situation. Cranial nerves II-XII grossly intact. Motor strength 5/5 in all extremities. Sensory grossly intact. Cerebellar exam normal. Normal gait. Psych: Awake, alert, with orientation to person, place and time. Behavior, mood, and affect are within normal limits. 13:01 Musculoskeletal/extremity: DVT Exam: No signs of deep vein thrombosis. no pain, no murphy swelling, no tenderness, negative Homans' sign noted on exam, no appreciated bluish discoloration, no erythema, no increased warmth. Vital Signs: 10:07 BP 118 / 81; Pulse 76; Resp 16; Temp 97.3; Pulse Ox 100% on R/A; Weight 90.72 kg; la1 Height 5 ft. 4 in. (162.56 cm); 12:00 BP 114 / 89; Pulse 57; Resp 16; Pulse Ox 98% ; la1 13:37 BP 110 / 81; Pulse 56; Resp 16; Pulse Ox 97% ; la1 10:07 Body Mass Index 34.33 (90.72 kg, 162.56 cm) dc1 MDM: 11:12 Patient medically screened. [facility] 13:01 Data reviewed: vital signs, nurses notes, lab test result(s), EKG, radiologic studies, [facility] plain films. 04/01 12:27 Order name: Urine Dipstick--Ancillary (enter results); Complete Time: 12:58 04/01 12:27 Order name: Urine --Ancillary (enter results); Complete Time: 12:58 04/01 11:13 Order name: Urine Dipstick-Ancillary (obtain specimen); Complete Time: 11:[address] [facility] 04/01 11:13 Order name: Urine Test (obtain specimen); Complete Time: 11:[address] [facility] 04/01 11:13 Order name: EKG; Complete Time: 11:[address] [facility] 04/01 11:13 Order name: Chest Single View XRAY; Complete Time: 12:[address] [facility] 04/01 11:13 Order name: EKG - Nurse/Tech; Complete Time: 11:[address] [facility] Administered Medications: No medications were administered Disposition: 04/01/19 13:03 Discharged to Home. Impression: Anxiety disorder, unspecified, Other chest pain - non cardiac. - Condition is Stable. - Discharge Instructions: Panic Attacks, Nonspecific Chest Pain, Panic Attacks, [id number]. - Prescriptions for Benadryl 25 mg Oral Capsule - take 1 capsule by ORAL route every 6 hours As needed; 30 tablet. - Medication Reconciliation Form, Thank You Letter, Antibiotic Education, Prescription Opioid Use form. - Follow up: Private Physician; When: 2 - 3 days; Reason: Recheck today's complaints, Continuance of care, Re-evaluation by your physician. - Problem is new. - Symptoms have improved. Signatures: Dispatcher [employer] EDMS Williams Chowdhury MD MD cha Attema, Lee RN RN la1 Corrections: (The following items were deleted from the chart) 13:37 13:03 04/01/2019 13:03 Discharged to Home. Impression: Anxiety disorder, unspecified; la1 Other chest pain - non cardiac. Condition is Stable. Forms are Medication Reconciliation Form, Thank You Letter, Antibiotic Education, Prescription Opioid Use. Follow up: Private Physician; When: 2 - 3 days; Reason: Recheck today's complaints, Continuance of care, Re-evaluation by your physician. Problem is new. Symptoms have improved. murphy
[2019-04-01 16:34] VITALS: TEMP 97.3
[2019-04-01 16:36] VITALS: BP 110/81; O2SAT 97
== END 2019-04-01 13:37 | disposition home or self-care (01) ==
LOC: ER 09:46
DX: F41.9 Anxiety disorder, unspecified (principal); Z88.0 Allergy status to penicillin
CPT/HCPCS: 71045; 81003; 81025; 93005; 99285

== ENCOUNTER 2023-12-30 14:38 | Emergency (ER) | payer SELFPAY ==
--- OUTSIDE RECORDS SUMMARY | 2023-12-30 14:43 | XMS REPORT | Continuity of Care Document ---
Author Name Unknown Address [address] [facility] [address] [place] [address] [facility] Address [address] [facility] [address] [place] [address] Care Team Providers Care Lead Mechanic Name Role Phone ANTONIO SALINAS Primary Care Physician Unav LEONOR Samuels Attending Clinician Unavailable ATNONIO SALINAS Attending Clinician Unavail able JAVI MAYO Attending Clinician Unavailab DAT Foss Attending Clinician Unavailable Dat Lambert MD Attending Clinician [phone] [facility]ending [facility] Unava ilable Antonio Schneider Attending Clinician + Simin DOW Attending Clinician Unavailable Simin Brooks Attending Clinician [phone] MARY LUGO Attending Clinician UnavailMary Morris CNM Attending Clinician [phone] SERGIO KULKARNI Attending Clinician Unavailable Sergio Kulkarni MD Attending Clinician [phone] Nurse, Crow [facility] Attending Clini jose g Pete MD, Maricarmen Arenas Attending Clinician + MARICARMEN PETE Attending Clinician Unav ailable Doctor Unassigned, Baxter Attending Clinician U KELLIE Montes Attending Clinician Unavailab Kellie Anne DO Attending Clinician [phone] Petey ASHLEY, David Goff Attending Clinician + [phone] DAVID GARCIA Attending Clinician Unavailab ANDRADE Odell Attending Clinician Unavailable ANDRADE KATE Attending Clinician Unavailable MANUEL MONTESINOS Attending Clinician Unavailable Hannah Hadley MD, Guzmán Attending Clinician + Ultrasound, [facility] Attending Clinician Unavailcarlito Gonzalez MD, Narcisa Ma Attending Clinician [phone] Faculty, Crow Pereiraester [facility] Attending Clinician Paul Davidson MD, Sharad Willard Attending Clinician [phone] SHARAD DAVIDSON Attending Clinician Unavailable J LUIS PHIPPS Attending Clinician UnavailLm ASHLEY, J Luis Soto Attending Clinician [phone] LUIS ABEL Attending Clinician Unavailab le 1, [facility] Usg Room Attending Clinician UnavailJennifer Flannery MD Attending Clinician + [phone] JENNIFER CRESPO Attending Clinician Unavailable JENNIFER CRESPO Attending Clinician Unavailable Steven MEREDITH, Gómez Peoples Attending Clinician [phone] Risk, [facility]High Attending Clinician Unav ailRenay Case Attending Clinician [phone] Lab, Sj Attending Clinician Unavailable Estelita ASHLEY, Terrell B Attending Clinician [phone] SAEID SMART Attending Clinician UnavailSAEID Jones Attending Clinician Unavaila PENG Villalobos Attending Clinician UnavailRANDI Griffin Attending Clinician Unavailable MANUEL MONTESINOS Admitting Clinician Unavailable Simin DOW Admitting Clinician Unavailable MARICARMEN PETE Admitting Clinician Unakarma Pete MD, Maricarmen Arenas Admitting Clinician + SHARAD DAVIDSON Admitting Clinician Unavailable Sharad Davidson MD Admitting Clinician Payers Payer Name Policy Type Policy Number Effective Date Expirati on Date Source [employer] MEDICAID [id number] 2020 00:00:00 [facility] [id number] 2023 00:00:00 [place] [id number] 2020 00:00:00 Problems Condition Name Condition Details Condition Category Status Onset Date Resolution Date Last Treatment Date Treating Clinician Comments Source Other general counseling and advice for contracept alonso management Other general counseling and advice for contracept alonso management Disease Active 4-11 00:00: 00 [facility] Well woman exam Well woman exam Disease Active 3-03 00:00: 00 [facility] Essential hypertensi on, benign Essential hypertensi on, benign Disease Active 2020-05 2-13 00:00: 00 [facility] Morbid obesity Morbid obesity Disease Active 6- 00:00: 00 [facility] ASCUS of cervix with negative high risk HPV ASCUS of cervix with negative high risk HPV Disease Active 4-20 00:00: 00 Overview: Formattin g of this note might be different from the original. In 2020, needs to repeat in 3 years. [facility] Depression , unspecifie d depression type Depression , unspecifie d depression type Disease Active 4-08 00:00: 00 [facility] Asthma Asthma Disease Active 3 00:00: 00 Overview: Formattin g of this note might be different from the original. ICD10 Diagnosis Term [employer] [facility] COVID-19 affecting in third trimester COVID-19 affecting in third trimester Disease Resolve d 2020-05 00:00: 00 2023-11-22 00:00:00 2023-11-22 11:45:12 [facility] Rubella non-immune status, antepartum Rubella non-immune status, antepartum Disease Resolve d 2020-0 7-06 00:00: 00 2023-11-22 00:00:00 2023-11-22 11:45:14 Overview: Jocelyne g of this note might be different from the original. Address pp [facility] Pre-eclamp woody affecting , antepartum Pre-eclamp woody affecting , antepartum Disease Resolve d 2020-1 2-29 00:00: 00 2021-08-16 00:00:00 2021-08-16 11:51:57 [facility] UTI in UTI in Disease Resolve d 2020-0 7-09 00:00: 00 2021-08-16 00:00:00 2021-08-16 11:52:51 [facility] 37 weeks gestation of 37 weeks gestation of Disease Resolve d 2021-0 1-26 00:00: 00 2021-07-08 00:00:00 2021-07-08 09:55:29 [facility] 35 weeks gestation of 35 weeks gestation of Disease Resolve d 2021-0 1-13 00:00: 00 2021-07-08 00:00:00 2021-07-08 09:55:32 [facility] 32 weeks gestation of 32 weeks gestation of Disease Resolve d 2020-1 2-28 00:00: 00 2021-07-08 00:00:00 2021-07-08 09:55:34 [facility] Supervisio n of high-risk Supervisio n of high-risk Disease Resolve d 2020-0 7-05 00:00: 00 2021-07-08 00:00:00 2021-07-08 09:54:53 [facility] Multiparit y Multiparit y Disease Resolve d 0 7-05 00:00: 00 2021-07-08 00:00:00 2021-07-08 09:55:02 [facility] History of miscarriag e History of miscarriag e Disease Resolve d 2020-0 6-21 00:00: 00 2021-07-08 00:00:00 2021-07-08 09:55:10 [facility] Hx of pre-eclamp woody in prior , currently Hx of pre-eclamp woody in prior , currently Disease Resolve d 6- 00:00: 00 2021-07-08 00:00:00 2021-07-08 09:55:05 [facility] Hx of abnormal Pap smear Hx of abnormal Pap smear Disease Resolve d 3- 00:00: 00 2021-07-08 00:00:00 2021-11-21 00:29:28 [facility] Prior complicate d by PIH, antepartum Prior complicate d by PIH, antepartum Disease Resolve d 3- 00:00: 00 2021-07-08 00:00:00 2021-11-21 00:29:28 [facility] History of section History of section Disease Resolve d 3- 00:00: 00 2021-07-08 00:00:00 2021-11-21 00:23:44 [facility] Rash and other nonspecifi c skin eruption Rash and other nonspecifi c skin eruption Disease Resolve d 9-17 00:00: 00 2021-03-11 00:00:00 2021-03-11 09:26:28 [facility] Pancreatit is Pancreatit is Disease Resolve d 0 6-01 00:00: 00 2021-01-25 00:00:00 2021-01-25 09:10:13 [facility] Headache Headache Disease Resolve d 4-30 00:00: 00 2020-11-10 00:00:00 2021-11-21 00:30:04 [facility] Encounter for Nexplanon removal Encounter for Nexplanon removal Disease Resolve d 4-14 00:00: 00 2020-10-26 00:00:00 2020-10-26 09:32:45 [facility] Menorrhagi a with regular cycle Menorrhagi a with regular cycle Disease Resolve d 0 4-08 00:00: 00 2020-10-26 00:00:00 2020-10-26 09:33:15 [facility] Encounter for surveillan ce of implantabl e subdermal contracept alonso Encounter for surveillan ce of implantabl e subdermal contracept alonso Disease Resolve d 4-08 00:00: 00 2020-10-26 00:00:00 2020-10-26 09:32:47 [facility] BMI 45.0-49.9, adult BMI 45.0-49.9, adult Disease Resolve d 4-08 00:00: 00 2020-10-26 00:00:00 2020-10-26 09:33:22 [facility] Toothache Toothache Disease Resolve d 7 00:00: 00 2020-10-26 00:00:00 2020-10-26 09:31:23 [facility] Tooth pain Tooth pain Disease Resolve d 430 00:00: 00 2020-10-26 00:00:00 2020-10-26 09:31:24 [facility] Class 3 severe obesity due to excess calories with body mass index (BMI) of 45.0 to 49.9 in adult, unspecifie d whether serious comorbidit y present Class 3 severe obesity due to excess calories with body mass index (BMI) of 45.0 to 49.9 in adult, unspecifie d whether serious comorbidit y present Disease Resolve d 3 00:00: 00 2020-10-26 00:00:00 2020-10-26 09:33:23 [facility] Previous delivery affecting Previous delivery affecting Disease Resolve d 9-05 00:00: 00 2014-01-24 00:00:00 2014-01-24 12:13:42 [facility] GBS (group B Streptococ cus carrier), +RV culture, currently GBS (group B Streptococ cus carrier), +RV culture, currently Disease Resolve d 12-26 00:00: 00 2014-01-24 00:00:00 2021-11-21 00:31:47 [facility] High-risk High-risk Disease Resolve d 08-02 00:00: 00 2014-01-24 00:00:00 2021-11-21 00:23:44 [facility] Significan t discrepanc y between uterine size and clinical dates, antepartum Significan t discrepanc y between uterine size and clinical dates, antepartum Disease Resolve d 5-20 00:00: 00 2013-11-21 00:00:00 2013-11-21 11:01:32 [facility] Rubella immune Rubella immune Disease Resolve d 07-30 00:00: 00 2013-11-21 00:00:00 2013-11-21 11:01:25 [facility] Immune to varicella Immune to varicella Disease Resolve d 07-26 00:00: 00 2013-11-21 00:00:00 2013-11-21 11:00:42 [facility] Pain pelvic Pain pelvic Disease Resolve d 07-26 00:00: 00 2013-11-21 00:00:00 2013-11-21 11:01:00 [facility] Nausea & vomiting Nausea & vomiting Disease Resolve d 07-26 00:00: 00 2013-11-21 00:00:00 2013-11-21 11:01:19 [facility] Muscle strain Muscle strain Disease Resolve d 2012-05 00:00: 00 2013-07-26 00:00:00 2013-07-26 15:23:59 [facility] Seasonal allergies Seasonal allergies Disease Resolve d 9-13 00:00: 00 2013-07-26 00:00:00 2013-07-26 15:24:12 [facility] Need for DTaP vaccinatio n Need for DTaP vaccinatio n Disease Resolve d 7-31 00:00: 00 2013-07-26 00:00:00 2021-11-21 00:25:45 [facility] Dysplasia of cervix Dysplasia of cervix Disease Resolve d 3- 00:00: 00 2013-07-26 00:00:00 2021-11-21 00:23:44 [facility] Headache Headache Disease Resolve d 07-20 00:00: 00 2013-07-26 00:00:00 2021-11-21 00:23:27 [facility] Not immune to rubella Not immune to rubella Disease Resolve d 07-20 00:00: 00 2013-07-26 00:00:00 2021-11-21 00:23:27 [facility] Leg cramps in Leg cramps in Disease Resolve d 08-30 00:00: 00 2012-10-10 00:00:00 2012-10-10 13:21:34 [facility] Round ligament pain Round ligament pain Disease Resolve d 08-30 00:00: 00 2012-10-10 00:00:00 2012-10-10 13:21:39 [facility] Nausea & vomiting Nausea & vomiting Disease Resolve d 07-20 00:00: 00 2012-10-10 00:00:00 2012-10-10 13:21:19 [facility] Backache Backache Disease Resolve d 07-20 00:00: 00 2012-10-10 00:00:00 2021-11-21 00:23:27 [facility] Other malaise and fatigue Other malaise and fatigue Disease Resolve d 07-20 00:00: 00 2012-08-02 00:00:00 2012-08-02 14:44:00 [facility] Vaginal bleeding before 22 weeks gestation Vaginal bleeding before 22 weeks gestation Disease Resolve d 07-20 00:00: 00 2012-08-02 00:00:00 2012-08-02 14:34:27 [facility] Allergies, Adverse Reactions, Alerts Allergy Name Allergy Type Status Severity Reaction(s) Onset Date Inactive Date Treating Clinician Comments Source Penicill ins Propensi ty to adverse reaction s Active Rash 10-14 00:00: 00 [facility] PENICILL INS Drug Class Active Rash 10-14 00:00: 00 [facility] Social History Social Habit Start Date Stop Date Quantity Comments [facility] Tobacco use and exposure 2023-11-22 00:00:00 2023-11-22 00:00:00 Smokeless tobacco non-user [facility] History of Social function 2023-11-22 00:00:00 2023-11-22 00:00:00 [facility] Alcoholic beverage intake 2023-11-22 00:00:00 2023-11-22 00:00:00 Current non-drinker of alcohol (finding) [facility] Alcohol intake 2023-07-20 00:00:00 2023-07-20 00:00:00 Current non-drinker of alcohol (finding) [facility] Exposure to SARS-CoV-2 (event) 2022-08-06 00:00:00 2022-08-16 13:04:00 Not sure [facility] History of tobacco use 2012-06-21 00:00:00 Cigarette Smoker [facility] Sex assigned at 1990 00:00:00 1990 00:00:00 [facility] Smoking Status Start Date Stop Date Source Ex-smoker 2023-11-22 00:00:00 2023-11-22 00:00:00 [facility] Medications Ordered Medication Name Filled Medication Name Start Date Stop Date Current Medication? Ordering Clinician Indication Dosage Frequency Signature (SIG) Comments Components Source medroxyPROG ESTERone (DEPO-PROVE RA) syringe 150 mg 07-19 19:30: 00 07-19 18:30 :00 No [id number] 150mg [facility] medroxyPROG ESTERone (DEPO-PROVE RA) syringe 150 mg 08-16 19:45: 00 04-27 15:07 :00 No [id number] 150mg 150 mg, Intramuscu lar, [id number], 4 doses, First dose on Mon08/16/22 at 1445, Last dose on Mon04/25/23 at 1445, Routine [facility] ibuprofen (IBU) tablet 800 mg 08-11 15:45: 00 08-11 15:51 :00 No 800mg 800 mg, Oral, ONCE, 1 dose, On Mon08/11/22 at 1045, TONEY [facility] ibuprofen 600 mg tablet 08-11 00:00: 00 11-21 00:00 :00 No [id number] 3 600mg Take 1 tablet by mouth every 6 (six) hours as needed for Pain (scale 4-6). [facility] medroxyPROG ESTERone (DEPO-PROVE RA) syringe 150 mg 05-20 20:15: 00 05-20 19:59 :00 No [id number] 150mg [facility] cyclobenzap rine 10 mg tablet 09-11 00:00: 00 Yes [id number] 10mg Take 1 tablet by mouth 3 (three) times daily as needed for Muscle Spasms. [facility] medroxyPROG ESTERone (DEPO-PROVE RA) injection 150 mg 08-27 15:45: 00 02-22 20:01 :00 No [id number] 150mg 150 mg, Intramuscu lar, [id number], 3 doses, First dose on Mon08/27/21 at 1045, Last dose on Mon02/11/22 at 1045, Routine [facility] vitamin w/FA tablet 06-04 00:00: 00 Yes [id number] 1{tbl} Take 1 tablet by mouth daily. [facility] vitamin w/FA tablet 06-04 00:00: 00 11-21 00:00 :00 No [id number] 1{tbl} Take 1 tablet by mouth daily. [facility] meclizine 25 mg tablet 2018-05 00:00: 00 08-13 00:00 :00 No [id number] 25mg Take 1 tablet by mouth every 6 (six) hours. [facility] phenazopyri dine 200 mg tablet 2017-05 00:00: 00 08-13 00:00 :00 No 200mg Take 1 tablet by mouth 3 (three) times daily. [facility] ondansetron (ZOFRAN ODT) 4 mg disintegrat ing tablet 2018-1 2-05 00:00: 00 08-13 00:00 :00 No 4mg Take 1 tablet by mouth every 8 (eight) hours as needed for Nausea and Vomiting (N/V). [facility] terbinafine HCl 250 mg tablet 08-31 00:00: 00 08-13 00:00 :00 No 250mg Take 1 tablet by mouth daily. [facility] traMADOL 50 mg tablet 08-31 00:00: 00 08-13 00:00 :00 No 50mg Take 1 tablet by mouth every 6 (six) hours as needed for Pain (scale 4-6). [facility] sulfamethox azole-trime thoprim 800-160 mg per tablet 08-31 00:00: 00 08-13 00:00 :00 No 1{tbl} Take 1 tablet by mouth every 12 (twelve) hours. [facility] Immunizations Ordered Immunization Name Filled Immunization Name Date Status Comments Source HPV9 2021-12-10 00:00:00 Completed [facility] HPV9 2021-12-10 00:00:00 Completed [facility] HPV9 2021-12-10 00:00:00 Completed [facility] HPV9 2021-12-10 00:00:00 Completed [facility] HPV9 2021-12-10 00:00:00 Completed [facility] HPV9 2021-12-10 00:00:00 Completed [facility] 2021-12-10 00:00:00 Completed [facility] HPV9 2021-12-10 00:00:00 Completed [facility] HPV9 2021-07-08 00:00:00 Completed [facility] HPV9 2021-07-08 00:00:00 Completed [facility] HPV9 2021-07-08 00:00:00 Completed [facility] HPV9 2021-07-08 00:00:00 Completed [facility] HPV9 2021-07-08 00:00:00 Completed [facility] HPV9 2021-07-08 00:00:00 Completed [facility] 2021-07-08 00:00:00 Completed [facility] HPV9 2021-07-08 00:00:00 Completed [facility] HPV9 2021-06-04 00:00:00 Completed [facility] HPV9 2021-06-04 00:00:00 Completed [facility] HPV9 2021-06-04 00:00:00 Completed [facility] HPV9 2021-06-04 00:00:00 Completed [facility] HPV9 2021-06-04 00:00:00 Completed [facility] HPV9 2021-06-04 00:00:00 Completed [facility] HPV9 2021-06-04 00:00:00 Completed [facility] HPV9 2021-06-04 00:00:00 Completed [facility] TDAP 2021-05-03 00:00:00 Completed [facility] TDAP 2021-05-03 00:00:00 Completed [facility] TDAP 2021-05-03 00:00:00 Completed [facility] TDAP 2021-05-03 00:00:00 Completed [facility] TDAP 2021-05-03 00:00:00 Completed [facility] TDAP 2021-05-03 00:00:00 Completed [facility] TDAP 2021-05-03 00:00:00 Completed [facility] TDAP 2021-05-03 00:00:00 Completed [facility] TDAP 2013-11-07 00:00:00 Completed [facility] TDAP 2013-11-07 00:00:00 Completed [facility] TDAP 2013-11-07 00:00:00 Completed [facility] TDAP 2013-11-07 00:00:00 Completed [facility] TDAP 2013-11-07 00:00:00 Completed [facility] TDAP 2013-11-07 00:00:00 Completed [facility] TDAP 2013-11-07 00:00:00 Completed [facility] TDAP 2013-11-07 00:00:00 Completed [facility] MMR 2013-02-10 00:00:00 Completed [facility] MMR 2013-02-10 00:00:00 Completed [facility] MMR 2013-02-10 00:00:00 Completed [facility] MMR 2013-02-10 00:00:00 Completed [facility] MMR 2013-02-10 00:00:00 Completed [facility] MMR 2013-02-10 00:00:00 Completed [facility] MMR 2013-02-10 00:00:00 Completed [facility] MMR 2013-02-10 00:00:00 Completed [facility] Influenza Virus Vaccine 2013-01-18 00:00:00 Completed [facility] Influenza Virus Vaccine 2013-01-18 00:00:00 Completed [facility] Influenza Virus Vaccine 2013-01-18 00:00:00 Completed [facility] Influenza Virus Vaccine 2013-01-18 00:00:00 Completed [facility] Influenza Virus Vaccine 2013-01-18 00:00:00 Completed [facility] Influenza Virus Vaccine 2013-01-18 00:00:00 Completed [facility] Influenza Virus Vaccine 2013-01-18 00:00:00 Completed [facility] Influenza Virus Vaccine 2013-01-18 00:00:00 Completed [facility] TDAP 2012-12-05 00:00:00 Completed [facility] TDAP 2012-12-05 00:00:00 Completed [facility] TDAP 2012-12-05 00:00:00 Completed [facility] TDAP 2012-12-05 00:00:00 Completed [facility] TDAP 2012-12-05 00:00:00 Completed [facility] TDAP 2012-12-05 00:00:00 Completed [facility] TDAP 2012-12-05 00:00:00 Completed [facility] TDAP 2012-12-05 00:00:00 Completed [facility] Rubella 2012-06-24 00:00:00 Completed [facility] Varicella-zoster ig 2012-06-24 00:00:00 Completed [facility] Rubella 2012-06-24 00:00:00 Completed [facility] Varicella-zoster ig 2012-06-24 00:00:00 Completed [facility] Rubella 2012-06-24 00:00:00 Completed [facility] Varicella-zoster ig 2012-06-24 00:00:00 Completed [facility] Rubella 2012-06-24 00:00:00 Completed [facility] Varicella-zoster ig 2012-06-24 00:00:00 Completed [facility] Rubella 2012-06-24 00:00:00 Completed [facility] Varicella-zoster ig 2012-06-24 00:00:00 Completed [facility] Rubella 2012-06-24 00:00:00 Completed [facility] Varicella-zoster ig 2012-06-24 00:00:00 Completed [facility] Rubella 2012-06-24 00:00:00 Completed [facility] Varicella-zoster ig 2012-06-24 00:00:00 Completed [facility] Rubella 2012-06-24 00:00:00 Completed [facility] Varicella-zoster ig 2012-06-24 00:00:00 Completed [facility] Influenza Virus Vaccine 2011-05-02 00:00:00 Completed [facility] Influenza Virus Vaccine 2011-05-02 00:00:00 Completed [facility] Influenza Virus Vaccine 2011-05-02 00:00:00 Completed [facility] Influenza Virus Vaccine 2011-05-02 00:00:00 Completed [facility] Influenza Virus Vaccine 2011-05-02 00:00:00 Completed [facility] Influenza Virus Vaccine 2011-05-02 00:00:00 Completed [facility] Influenza Virus Vaccine 2011-05-02 00:00:00 Completed [facility] Influenza Virus Vaccine 2011-05-02 00:00:00 Completed [facility] Td 2006-05-08 00:00:00 Completed [facility] Td 2006-05-08 00:00:00 Completed [facility] Td 2006-05-08 00:00:00 Completed [facility] TD, NOS 2006-05-08 00:00:00 Completed [facility] TD, NOS 2006-05-08 00:00:00 Completed [facility] TD, NOS 2006-05-08 00:00:00 Completed [facility] TD, NOS 2006-05-08 00:00:00 Completed [facility] TD, NOS 2006-05-08 00:00:00 Completed [facility] Influenza Virus Vaccine Unknown Completed [facility] TD, NOS Unknown Completed [facility] Rubella Unknown Completed [facility] Varicella-zoster ig Unknown Completed [facility] TDAP Unknown Completed [facility] Influenza Virus Vaccine Unknown Completed [facility] MMR Unknown Completed [facility] TDAP Unknown Completed [facility] TDAP Unknown Completed [facility] HPV9 Unknown Completed [facility] HPV9 Unknown Completed [facility] HPV9 Unknown Completed [facility] Influenza Virus Vaccine Unknown Completed [facility] TD, NOS Unknown Completed [facility] Rubella Unknown Completed [facility] [facility] Varicella-zoster ig Unknown Completed [facility] TDAP Unknown Completed [facility] Influenza Virus Vaccine Unknown Completed [facility] MMR Unknown Completed [facility] TDAP Unknown Completed [facility] TDAP Unknown Completed [facility] HPV9 Unknown Completed [facility] HPV9 Unknown Completed [facility] Influenza Virus Vaccine Unknown Completed [facility] TD, NOS Unknown Completed [facility] Rubella Unknown Completed [facility] Varicella-zoster ig Unknown Completed [facility] TDAP Unknown Completed [facility] Influenza Virus Vaccine Unknown Completed [facility] MMR Unknown Completed [facility] TDAP Unknown Completed [facility] TDAP Unknown Completed [facility] HPV9 Unknown Completed [facility] Influenza Virus Vaccine Unknown Completed [facility] TD, NOS Unknown Completed [facility] Rubella Unknown Completed [facility] Varicella-zoster ig Unknown Completed [facility] TDAP Unknown Completed [facility] Influenza Virus Vaccine Unknown Completed [facility] MMR Unknown Completed [facility] TDAP Unknown Completed [facility] Influenza Virus Vaccine Unknown Completed [facility] TD, NOS Unknown Completed [facility] Rubella Unknown Completed [facility] Varicella-zoster ig Unknown Completed [facility] TDAP Unknown Completed [facility] Influenza Virus Vaccine Unknown Completed [facility] MMR Unknown Completed [facility] TDAP Unknown Completed [facility] Influenza Virus Vaccine Unknown Completed [facility] TD, NOS Unknown Completed [facility] Rubella Unknown Completed [facility] Varicella-zoster ig Unknown Completed [facility] TDAP Unknown Completed [facility] Influenza Virus Vaccine Unknown Completed [facility] MMR Unknown Completed [facility] TDAP Unknown Completed [facility] TDAP Unknown Completed [facility] HPV9 Unknown Completed [facility] HPV9 Unknown Completed [facility] HPV9 Unknown Completed [facility] Influenza Virus Vaccine Unknown Completed [facility] TD, NOS Unknown Completed [facility] Rubella Unknown Completed [facility] Varicella-zoster ig Unknown Completed [facility] TDAP Unknown Completed [facility] Influenza Virus Vaccine Unknown Completed [facility] MMR Unknown Completed [facility] TDAP Unknown Completed [facility] TDAP Unknown Completed [facility] HPV9 Unknown Completed [facility] HPV9 Unknown Completed [facility] HPV9 Unknown Completed [facility] Influenza Virus Vaccine Unknown Completed [facility] TD, NOS Unknown Completed [facility] Rubella Unknown Completed [facility] Varicella-zoster ig Unknown Completed [facility] TDAP Unknown Completed [facility] Influenza Virus Vaccine Unknown Completed [facility] MMR Unknown Completed [facility] TDAP Unknown Completed [facility] TDAP Unknown Completed [facility] HPV9 Unknown Completed [facility] HPV9 Unknown Completed [facility] HPV9 Unknown Completed [facility] Influenza Virus Vaccine Unknown Completed [facility] TD, NOS Unknown Completed [facility] Rubella Unknown Completed [facility] Varicella-zoster ig Unknown Completed [facility] TDAP Unknown Completed [facility] Influenza Virus Vaccine Unknown Completed [facility] MMR Unknown Completed [facility] TDAP Unknown Completed [facility] TDAP Unknown Completed [facility] HPV9 Unknown Completed [facility] HPV9 Unknown Completed [facility] HPV9 Unknown Completed [facility] Vital Signs Vital Name Observation Time Observation Value Comments S ource Systolic blood pressure 2023-11-22 16:25:00 120 mm[Hg] [facility] Diastolic blood pressure 2023-11-22 16:25:00 86 mm[Hg] [facility] Heart rate 2023-11-22 16:25:00 95 /min [facility] Body temperature 2023-11-22 16:23:00 36.78 Monica [facility] Respiratory rate 2023-11-22 16:23:00 20 /min [facility] Body height 2023-11-22 16:23:00 154.9 cm [facility] Body weight 2023-11-22 16:23:00 127.489 kg [facility] BMI 2023-11-22 16:23:00 53.11 kg/m2 [facility] Systolic blood pressure 2023-09-23 15:00:00 144 mm[Hg] [facility] Diastolic blood pressure 2023-09-23 15:00:00 94 mm[Hg] [facility] Heart rate 2023-09-23 15:00:00 89 /min [facility] Body temperature 2023-09-23 15:00:00 37.17 Monica [facility] Respiratory rate 2023-09-23 15:00:00 15 /min [facility] Body height 2023-09-23 15:00:00 154.9 cm [facility] Body weight 2023-09-23 15:00:00 122.471 kg [facility] BMI 2023-09-23 15:00:00 51.02 kg/m2 [facility] Oxygen saturation in Arterial blood by Pulse oximetry 2023-09-23 15:00:00 97 /min [facility] Systolic blood pressure 2023-07-20 17:55:00 126 mm[Hg] [facility] Diastolic blood pressure 2023-07-20 17:55:00 90 mm[Hg] [facility] Heart rate 2023-07-20 17:55:00 96 /min [facility] Body temperature 2023-07-20 17:55:00 35.67 Monica [facility] Respiratory rate 2023-07-20 17:55:00 17 /min [facility] Body height 2023-07-20 17:55:00 154.9 cm [facility] Body weight 2023-07-20 17:55:00 122.879 kg [facility] BMI 2023-07-20 17:55:00 51.19 kg/m2 [facility] Systolic blood pressure 2023-04-27 15:06:00 120 mm[Hg] [place] [facility] Diastolic blood pressure 2023-04-27 15:06:00 64 mm[Hg] [facility] Heart rate 2023-04-27 14:56:00 82 /min [facility] Body temperature 2023-04-27 14:56:00 36.22 Monica [facility] Respiratory rate 2023-04-27 14:56:00 18 /min [facility] Body height 2023-04-27 14:56:00 154.9 cm [facility] Body weight 2023-04-27 14:56:00 123.832 kg [facility] BMI 2023-04-27 14:56:00 51.58 kg/m2 [facility] Systolic blood pressure 2023-02-01 17:50:00 120 mm[Hg] [facility] Diastolic blood pressure 2023-02-01 17:50:00 83 mm[Hg] [facility] Heart rate 2023-02-01 17:50:00 90 /min [facility] Body temperature 2023-02-01 17:50:00 36.5 Monica [facility] Respiratory rate 2023-02-01 17:50:00 20 /min [facility] Body height 2023-02-01 17:50:00 154.9 cm [facility] Body weight 2023-02-01 17:50:00 122.607 kg [facility] BMI 2023-02-01 17:50:00 51.07 kg/m2 [facility] Systolic blood pressure 2022-11-09 18:22:00 119 mm[Hg] [facility] Diastolic blood pressure 2022-11-09 18:22:00 85 mm[Hg] [facility] Heart rate 2022-11-09 18:21:00 67 /min [facility] Body temperature 2022-11-09 18:21:00 36.67 Monica [facility] Respiratory rate 2022-11-09 18:21:00 19 /min [facility] Body height 2022-11-09 18:21:00 154.9 cm [facility] Body weight 2022-11-09 18:21:00 120.022 kg [facility] BMI 2022-11-09 18:21:00 50.00 kg/m2 [facility] Systolic blood pressure 2022-08-16 18:05:00 116 mm[Hg] [facility] Diastolic blood pressure 2022-08-16 18:05:00 75 mm[Hg] [facility] Heart rate 2022-08-16 18:05:00 62 /min [facility] Body temperature 2022-08-16 18:05:00 35.89 Monica [facility] Respiratory rate 2022-08-16 18:05:00 18 /min [facility] Body height 2022-08-16 18:05:00 154.9 cm [facility] Body weight 2022-08-16 18:05:00 120.566 kg [facility] BMI 2022-08-16 18:05:00 50.22 kg/m2 [facility] Systolic blood pressure 2022-08-11 19:06:00 145 mm[Hg] [facility] Diastolic blood pressure 2022-08-11 19:06:00 103 mm[Hg] [facility] Heart rate 2022-08-11 19:06:00 57 /min [facility] Respiratory rate 2022-08-11 19:06:00 18 /min [facility] Oxygen saturation in Arterial blood by Pulse oximetry 2022-08-11 19:06:00 100 /min [facility] Body temperature 2022-08-11 15:20:00 37 Monica [facility] Body weight 2022-08-11 15:20:00 121.836 kg [facility] BMI 2022-08-11 15:20:00 50.75 kg/m2 [facility] Systolic blood pressure 2022-05-20 19:15:00 138 mm[Hg] [facility] Diastolic blood pressure 2022-05-20 19:15:00 83 mm[Hg] [facility] Heart rate 2022-05-20 19:15:00 69 /min [facility] Body temperature 2022-05-20 19:15:00 36.33 Monica [facility] Respiratory rate 2022-05-20 19:15:00 20 /min [facility] Body height 2022-05-20 19:15:00 154.9 cm [facility] Body weight 2022-05-20 19:15:00 115.724 kg [facility] BMI 2022-05-20 19:15:00 48.21 kg/m2 [facility] Systolic blood pressure 2022-02-22 19:59:00 125 mm[Hg] [facility] Diastolic blood pressure 2022-02-22 19:59:00 72 mm[Hg] [facility] Heart rate 2022-02-22 19:59:00 62 /min [facility] Body temperature 2022-02-22 19:59:00 36.22 Monica [facility] Respiratory rate 2022-02-22 19:59:00 18 /min [facility] Body weight 2022-02-22 19:59:00 113.172 kg [facility] BMI 2022-02-22 19:59:00 47.14 kg/m2 [facility] Systolic blood pressure 2022-01-04 20:33:00 123 mm[Hg] [facility] Diastolic blood pressure 2022-01-04 20:33:00 74 mm[Hg] [facility] Heart rate 2022-01-04 20:33:00 91 /min [facility] Body temperature 2022-01-04 20:33:00 36.22 Monica [facility] Body height 2022-01-04 20:33:00 154.9 cm [facility] Body weight 2022-01-04 20:33:00 112.946 kg [facility] BMI 2022-01-04 20:33:00 47.05 kg/m2 [facility] Oxygen saturation in Arterial blood by Pulse oximetry 2022-01-04 20:33:00 97 /min [facility] Procedures Procedure Date / Time Performed Performing Clinician Source THYROID STIMULATING HORMONE 2023-11-22 17:25:00 Leonor Johns [facility] GC & CHLAMYDIA AMPLIFIED ASSAY 2023-11-22 17:25:00 Leonor Johns [facility] HIV 1/2 AG-AB WITH REFLEX 2023-11-22 17:25:00 Leonor Johns [facility] HIGH RISK HPV-THIN PREP 2023-11-22 17:25:00 Sae Johns [facility] PAP SMEAR-LIQUID BASED-CP 2023-11-22 [facility]-11-22 17:25:00 [facility] 2023[facility]-22 16:31[facility] 2022-08-16 18:10:00 Jhon Salinas [facility] XR KNEE 3 VW RIGHT 2022-08-11 16:32:37 Simin Dow [facility] CONSENT/REFUSAL FOR DIAGNOSIS AND TREATMENT 2022-08-11 15:10:53 Doctor Unassigned, Baxter [facility] Encounters Start Date/Time End Date/Time Encounter Type Admission Type Attending Clinicians Care Facility Care Department Encounter ID Source 2021-05-21 14:53:22 Outpatient P [facility] D[facility]NE[facility] [id number] [facility] 2021-05-09 10:57:27 Outpatient P [facility] [id number] [facility] 2021-03-08 20:49:[address] [facility] [id number] [facility] 2021-03-08 07:20:[address] [facility] [id number] [facility] 2021-03-08 04:03:[address] [facility] [id number] [facility] 2021-03-08 03:12:58 Emergency [facility] [id number] [facility] 2021-03-08 02:32:[address] [facility] [id number] [facility] 2023-11-22 11:00:00 2023-11-22 12:29:[address] [facility] [id number] [facility] 2023-11-22 11:00:00 2023-11-22 12:29:39 Office Visit Leonor Johns [facility] ADVERTISING STRATEGIST [facility] MATERNAL & CHILD HEALTH [facility] [id number] 350.1.13.10 4.2.7.2.686 [id number] [facility] 2023-11-22 06:45:00 2023-11-22 06:45:[address] [facility] [id number] [facility] 2023-11-21 15:15:00 2023-11-21 15:15:[address] [facility] [id number] [facility] 2023-11-15 13:30:00 2023-11-15 13:30:00 Outpatient R ANTONIO SALINAS [facility] [id number] [facility] 2023-10-31 07:00:00 2023-10-31 07:00:00 Outpatient R ANTONIO [address] [id number] [facility] 2023-10-24 14:45:00 2023-10-24 14:45:00 Outpatient R ANTONIO [facility] [id number] [facility] 2023-10-09 10:40:00 2023-10-09 10:40:[address] [facility] [id number] [facility] 2023-09-23 10:06:00 2023-09-23 10:54:00 Emergency X DAT LAMBERT [facility] ERT [id number] [facility] 2023-09-23 10:06:00 2023-09-23 10:54:00 Emergency Dat Lambert C [facility] 1.840.114 350.1.13.10 4.2.7.2.686 [id number] [facility] 2023-07-20 13:00:00 2023-07-20 13:06:28 Outpatient R [address]IO [address] [facility] [id number] [facility] 2023-07-20 13:00:00 2023-07-20 13:06:28 [facility] ADVERTISING STRATEGIST [facility] 1.2840.114 350.1.13.10 4.2.7.2.686 [id number] [facility] 2023-04-27 09:00:00 2023-04-27 09:15:00 Nurse Visit Visit, MerlyAntonio Sanford [facility] ADVERTISING STRATEGIST [facility] CHILD [facility] 1.840.114 350.1.13.10 4.2.7.2.686 [id number] [facility] 2023-04-27 09:00:00 2023-04-27 09:00:00 Outpatient R ANTONIO SAL[facility] [id number] [facility] 2023-04-26 13:00:00 2023-04-26 13:00:00 Outpatient R [facility]TONIO [facility] [id number] [facility] 2023-02-01 13:00:00 2023-02-01 13:00:00 Nurse [facility] ADVERTISING STRATEGIST [facility] 1..840.114 350.1.13.10 4.2.7.2.686 [id number] [facility] 2023-02-01 13:00:00 2023-02-01 12:51:27 Outpatient R [address]TONIO [address] [facility] [id number] [facility] 2022-11-09 13:30:00 2022-11-09 13:30:22 Outpatient R [address]IO [address] [facility] [id number] [facility] 2022-11-09 13:30:00 2022-11-09 13:30:22 Nurse Visit Visit, Crow-Rmp Nurse Antonio Salinas Tracy [facility] ADVERTISING STR[facility]GIST [facility] & CHILD [facility] [id number] 350.1.13.10 4.2.7.2.686 [id number] [facility] 2022-08-16 13:30:00 2022-08-16 14:00:59 Outpatient R [address]TONIO [address] [facility] [id number] [facility] 2022-08-16 13:30:00 2022-08-16 14:00:59 Office Visit Antonio Salinas Tracy [facility] ADVERTISING STRATEGIST [facility]ILD [facility] 1.840.114 350.1.13.10 4.2.7.2.686 [id number] [facility] 2022-08-16 13:15:00 2022-08-16 13:15:00 Outpatient R [address]TONIO [address] [facility] [id number] [facility] 2022-08-11 10:23:00 2022-08-11 14:22:00 Emergency X Simin DOW [facility] E[facility] [id number] [facility] 2022-08-11 10:23:00 2022-08-11 14:22:00 Emergency Simin Dow [facility] 1..840.114 350.1.13.10 4.2.7.2.686 [id number] [facility] 2022-05-20 13:30:00 2022-05-20 13:30:00 [address] MARY LU[address] [facility] [id number] [facility] 2022-05-20 13:30:00 2022-05-20 13:30:00 Nurse Visit Visit, MerlychMary Srivastava [facility] ADVERTISING STRATEGIST [facility] CHILD [facility] 1..840.114 350.1.13.10 4.2.7.2.686 [id number] [facility] 2022-05-17 10:30:00 2022-05-17 10:30:00 Outpatient R [address]TONIO [address] [facility] [id number] [facility] 2022-02-22 15:00:00 2022-02-22 15:00:00 Nurse Visit Visit, Antonio Boyd [facility] ADVERTISING STRATEGIST [facility]ILD [facility] ..840.114 350.1.13.10 4.2.7.2.686 [id number] [facility] 2022-02-22 15:00:00 2022-02-22 14:58:30 Outpatient R [address]TONIO [address] [facility] [id number] [facility] 2022-02-21 13:00:00 2022-02-21 13:00:00 Outpatient R ANTONIO [address] [facility] [id number] [facility] 2022-01-04 15:20:00 2022-01-04 15:48:28 Outpatient R SERGIO KULKARNI [facility] [id number] [facility] 2022-01-04 15:20:00 2022-01-04 15:48:28 Office Visit Sergio Kulkarni [facility] ..840.114 350.1.13.10 4.2.7.2.686 [id number] [facility] 2021-12-10 15:30:00 2021-12-10 15:56:43 Nurse Visit Nurse, Crow Chung Exp [facility]yn Maricarmen Pete Ikuvbogiervin [facility] ADVERTISING STRATEGIST [facility] MATERNAL & CHILD [facility] 1.2.840.114 350.1.13.10 4.2.7.2.686 [id number] [facility] 2021-12-10 15:30:00 2021-12-10 15:30:00 Outpatient R DELONTE PETELiyah [facility] [id number] [facility] 2021-12-02 00:00:00 2021-12-02 00:00:00 Patient Secure Msg Doctor Unassigned, Baxter [facility] 1.2840.114 350.1.13.10 4.2.7.2.686 [id number] [facility] 2021-11-19 13:00:00 2021-11-19 13:00:00 Nurse Visit Visit, Antonio Boyd [facility] ADVERTISING STRATEGIST [facility] MATERNAL & CHILD [facility] 1..840.114 350.1.13.10 4.2.7.2.686 [id number] [facility] 2021-11-19 13:00:00 2021-11-19 12:58:[address] [facility] [id number] [facility] 2021-09-11 20:20:00 2021-09-11 20:51:00 Emergency X KELLIE PHIPPS [facility] E[facility] [id number] [facility] 2021-09-11 20:20:00 2021-09-11 20:51:00 Emergency Kellie Phipps [facility] 1.840.114 350.1.13.10 4.2.7.2.686 [id number] [facility] 2021-09-11 00:00:00 2021-09-11 00:00:00 Orders Only Doctor Unassigned, Baxter [facility] 1.2.840.114 350.1.13.10 4.2.7.2.686 [id number] [facility] 2021-08-27 10:00:00 2021-08-27 10:45:58 Nurse Visit Visit, Ang-Rmchp Nurse David Garcia [facility] ADVERTISING STRATEGIST [facility] CHILD [facility] 1.840.114 350.1.13.10 4.2.7.2.686 [id number] [facility] 2021-08-27 10:00:00 2021-08-27 10:00:[address] [facility] [id number] [facility] 2021-08-27 10:00:00 2021-08-27 10:00:[address] [facility] [id number] [facility] 2021-08-16 10:45:00 2021-08-16 12:02:[address] [facility] [id number] [facility] 2021-08-16 10:45:00 2021-08-16 12:02:58 Office Visit Antonio Salinas [facility] ADVERTISING STRATEGIST [facility] CHILD [facility] 1.840.114 350.1.13.10 4.2.7.2.686 [id number] [facility] 2021-08-16 00:00:00 2021-08-16 00:00:00 Orders Only Doctor Unassigned, Baxter [facility] 1.840.114 350.1.13.10 4.2.7.2.686 [id number] [facility] 2021-07-29 11:00:00 2021-07-29 11:00:00 Outpatient R ANTONIO SALINAS [facility] [id number] [facility] 2021-07-13 15:30:00 2021-07-13 15:30:[address] [facility] [id number] [facility] 2021-07-08 09:15:00 2021-07-08 10:16:57 Outpatient R ANTONIO SAL[facility] [id number] [facility] 2021-07-08 09:15:00 2021-07-08 10:16:57 Routine Visit Antonio Salinas [facility] ADVERTISING STRATEGIST [facility] MATERNAL & CHILD [facility] 1.2.840.114 350.1.13.10 4.2.7.2.686 [id number] [facility] 2021-07-06 12:45:00 2021-07-06 12:45:[address] [facility] [id number] [facility] 2021-07-05 14:30:00 2021-07-05 14:30:00 Outpatient ANDRADE ARRIAGA ELENITA [facility] [id number] [facility] 2021-06-25 00:00:00 2021-06-25 00:00:00 Letter (Out) Maricarmen Pete [facility] 1..840.114 350.1.13.10 4.2.7.2.686 [id number] [facility] 2021-06-15 10:30:00 2021-06-15 11:12:11 Nurse Visit Visit, Ang-Rmchp Nurse David Garcia [facility] ADVERTISING STRATEGIST [facility] 1..840.114 350.1.13.10 4.2.7.2.686 [id number] [facility] 2021-06-15 10:30:00 2021-06-15 10:30:[address] [facility] [id number] [facility] 2021-06-11 00:00:00 2021-06-11 00:00:00 Patient Secure Msg Doctor Unassigned, Baxter [facility] 1.2.840.114 350.1.13.10 4.2.7.2.686 [id number] [facility] 2021-06-02 08:52:00 2021-06-04 15:59:00 Inpatient P MARICARMEN PETE [facility] [id number] [facility] 2021-06-02 08:52:00 2021-06-04 15:59:00 Hospital Encounter Shantanu [facility] 1.2.840.114 350.1.13.10 4.2.7.2.686 [id number] [facility] 2021-06-02 10:00:00 2021-06-02 11:41:00 Surgery Shantanu [facility] 1.2.840.114 350.1.13.10 4.2.7.2.686 [id number] [facility] 2021-06-02 00:00:00 2021-06-02 00:00:00 Orders Only Doctor Unassigned, Baxter [facility] 1.2.840.114 350.1.13.10 4.2.7.2.686 [id number] [facility] 2021-05-31 10:45:00 2021-05-31 11:58:12 Outpatient R DAVID GARCIA [facility] [id number] [facility] 2021-05-31 10:45:00 2021-05-31 11:58:12 Routine Visit David Garcia [facility] ADVERTISING STRATEGIST [facility] 1.2.840.114 350.1.13.10 4.2.7.2.686 [id number] [facility] 2021-05-27 10:45:00 2021-05-27 10:45:[address] [facility] [id number] [facility] 2021-05-25 11:00:00 2021-05-25 11:00:00 Outpatient R ALCON ANTONIO [facility] [id number] [facility] 2021-05-20 16:54:00 2021-05-21 14:53:00 Outpatient P MANUEL MONTESINOS [facility] [id number] [facility] 2021-05-20 16:54:00 2021-05-21 14:53:00 Hospital Encounter Young Arielle Johnson [facility] 1.840.114 350.1.13.10 4.2.7.2.686 [id number] [facility] 2021-05-20 16:54:00 2021-05-21 14:53:00 Outpatient P JAGUARMANUEL AVALOS [facility] [id number] [facility] 2021-05-20 12:45:00 2021-05-20 13:45:28 Outpatient R ANTONIO SALINAS [facility] [id number] [facility] 2021-05-20 12:45:00 2021-05-20 13:45:28 Routine Visit Antonio Salinas [facility] ADVERTISING STRATEGIST [facility] 1.840.114 350.1.13.10 4.2.7.2.686 [id number] [facility] 2021-05-20 11:30:00 2021-05-20 12:00:00 Inventory Control Manager Visit Ultrasound, Narcisa Umana [facility] ADVERTISING STRATEGIST [facility] .840.114 350.1.13.10 4.2.7.2.686 [id number] [facility] 2021-05-20 00:00:00 2021-05-20 00:00:00 Abstract Antonio Salinas [facility] ADVERTISING STRATEGIST [facility] 1.840.114 350.1.13.10 4.2.7.2.686 [id number] [facility] 2021-05-17 11:00:00 2021-05-17 11:00:00 Outpatient R ANTONIO SALINAS [facility] [id number] [facility] 2021-05-17 09:30:00 2021-05-17 10:10:09 Routine Visit Faculty, Sharad Yuan [facility] ADVERTISING STRATEGIST [facility] 1.840.114 350.1.13.10 4.2.7.2.686 [id number] [facility] 2021-05-17 09:30:00 2021-05-17 10:10:09 Outpatient R SHARAD DAVIDSON [facility] [id number] [facility] 2021-05-14 11:00:00 2021-05-14 11:00:[address] [facility] [id number] [facility] 2021-05-13 14:45:00 2021-05-13 14:45:00 Outpatient R ANTONIO [facility] [id number] [facility] 2021-05-04 13:32:00 2021-05-09 10:57:00 Inpatient P JAGUAR [facility] [id number] [facility] 2021-05-04 13:32:00 2021-05-09 10:57:00 Inpatient P JAGUAR, [facility] [id number] [facility] 2021-05-04 13:32:00 2021-05-09 10:57:00 Hospital Encounter Narcisa Gonzalez [facility] 1.840.114 350.1.13.10 4.2.7.2.686 [id number] [facility] 2021-05-04 00:00:00 2021-05-04 00:00:00 Telephone Antonio Salinas [facility] ADVERTISING STRATEGIST [facility] 1.2.840.114 350.1.13.10 4.2.7.2.686 [id number] [facility] 2021-05-03 11:00:00 2021-05-03 12:07:09 Outpatient [address]IO [address] [facility] [id number] [facility] 2021-05-03 11:00:00 2021-05-03 12:07:09 Outpatient R [address]IO [address] [facility] [id number] [facility] 2021-05-03 11:00:00 2021-05-03 12:07:09 Routine Visit Antonio Salinas [facility] ADVERTISING STRATEGIST [facility] 1.2.840.114 350.1.13.10 4.2.7.2.686 [id number] [facility] 2021-05-03 11:00:00 2021-05-03 11:00:00 Outpatient R ANTONIO SAL[facility] [id number] [facility] 2021-05-03 00:00:00 2021-05-03 00:00:00 Telephone Antonio Salinas [facility] ADVERTISING STRATEGIST [facility] 1.2.840.114 350.1.13.10 4.2.7.2.686 [id number] [facility] 2021-04-23 11:15:00 2021-04-23 11:15:[address] [facility] [id number] [facility] 2021-04-19 17:54:00 2021-04-19 21:17:00 Outpatient P SHARAD DAVIDSON [facility] [id number] [facility] 2021-04-19 17:54:00 2021-04-19 21:17:00 Hospital Encounter Sharad Davidson [facility] 1..840.114 350.1.13.10 4.2.7.2.686 [id number] [facility] 2021-04-19 13:00:00 2021-04-19 14:10:55 Outpatient R ANTONIO [address] [facility] [id number] [facility] 2021-04-19 13:00:00 2021-04-19 14:10:55 Outpatient R [address]TONIO [facility] [facility] [id number] [facility] 2021-04-19 12:53:22 2021-04-19 14:10:55 Routine Visit Antonio Salinas [facility] ADVERTISING STRATEGIST [facility]ERNAL & [facility]ILD [facility]ALTH [facility] 1..840.114 350.1.13.10 4.2.7.2.686 [id number] [facility] 2021-04-14 14:30:00 2021-04-14 14:30:00 Outpatient J LUIS MAYBERRY [facility] [id number] [facility] 2021-04-08 10:45:00 2021-04-08 10:45:[address] [facility] [id number] [facility] 2021-03-31 00:00:00 2021-03-31 00:00:00 Telephone J Luis Phipps [facility] ADVERTISING STRATEGIST [facility] 1..840.114 350.1.13.10 4.2.7.2.686 [id number] [facility] 2021-03-30 15:30:00 2021-03-30 15:30:[address] [facility] [id number] [facility] 2021-03-24 09:15:00 2021-03-24 09:15:00 Outpatient J LUIS MAYBERRY [facility] [id number] [facility] 2021-03-17 10:01:14 2021-03-17 10:51:57 Inventory Control Manager Visit 1, [facility] Usg Room Vikram Jennifer Ma [facility] 1.114 350.1.13.10 4.2.7.2.686 [id number] [facility] 2021-03-17 10:45:00 2021-03-17 10:45:00 Outpatient P JENNIFER CRESPO SHANNON [facility] [id number] [facility] 2021-03-11 09:30:00 2021-03-11 09:38:20 Outpatient R J LUIS PHIPPS [facility] [id number] [facility] 2021-03-11 09:11:16 2021-03-11 09:38:20 Routine Visit J Luis Phipps [facility] ADVERTISING STRATEGIST [facility] 1.84.114 350.1.13.10 4.2.7.2.686 [id number] [facility] 2021-02-24 10:33:13 2021-02-24 11:58:13 Inventory Control Manager Visit 1, [facility] Us Room HarrisYadiis Shelton [facility] 1.114 350.1.13.10 4.2.7.2.686 [id number] [facility] 2021-02-24 10:45:00 2021-02-24 10:45:[address] [facility] [id number] [facility] 2021-02-18 10:07:00 2021-02-18 10:43:48 Routine Visit J Luis Phipps [facility] ADVERTISING STRATEGIST [facility] 1..114 350.1.13.10 4.2.7.2.686 [id number] [facility] 2021-02-18 10:30:00 2021-02-18 10:30:00 Outpatient R J LUIS PHIPPS [facility] [id number] [facility] 2021-02-16 10:30:00 2021-02-16 10:30:00 Outpatient R ANTONIO SALINAS [facility] [id number] [facility] 2021-02-04 10:45:00 2021-02-04 10:45:[address] [facility] [id number] [facility] 2021-02-02 11:00:00 2021-02-02 11:00:00 Outpatient R ANTONIO SAL[facility]AS [facility] [id number] [facility] 2021-01-28 15:30:00 2021-01-28 15:30:[address] [facility] [id number] [facility] 2021-01-28 09:38:04 2021-01-28 10:48:30 Routine Visit Risk, Crow-Randallchp-N p/High Renay Steward [facility] ADVERTISING STRATEGIST 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 [id number] [facility] 2021-01-13 00:00:00 2021-01-13 00:00:00 Telephone David Garcia [facility] ADVERTISING STRATEGIST [facility] 1.2.840.114 350.1.13.10 4.2.7.2.686 [id number] [facility] 2021-01-12 11:11:00 2021-01-12 14:59:00 Emergency Terrell Capone [facility] 1.2.840.114 350.1.13.10 4.2.7.2.686 [id number] [facility] 2021-01-05 10:24:16 2021-01-05 11:14:51 Routine Visit Antonio Salinas [facility] ADVERTISING STRATEGIST [facility] 1.2.840.114 350.1.13.10 4.2.7.2.686 [id number] [facility] 2021-01-05 11:00:00 2021-01-05 11:00:00 Outpatient R [address]TONIO SALINAS [facility] [id number] [facility] 2020-12-14 13:15:00 2020-12-14 13:15:[address] [facility] [id number] [facility] 2020-12-14 13:15:00 2020-12-14 13:15:[address] [facility] [id number] [facility] 2020-12-07 12:45:00 2020-12-07 12:45:00 Outpatient R [address]IO [address] [facility] [id number] [facility] 2020-11-24 14:45:00 2020-11-24 14:45:00 Out[address]IO [address] [facility] [id number] [facility] 2020-11-16 19:30:00 2020-11-16 19:30:00 Outpatient R SAEID SMART STRAHIL [facility] [id number] [facility] 2020-11-13 10:00:00 2020-11-13 10:00:[address] [facility] [id number] [facility] 2020-11-13 09:40:00 2020-11-13 09:40:00 [address] PENG HO[address]IS [facility] [id number] [facility] 2020-11-11 08:00:00 2020-11-11 08:00:[address] [facility] [id number] [facility] 2020-11-09 12:45:00 2020-11-09 12:45:00 Outpatient R [address]IO [address] [facility] [id number] [facility] 2020-11-02 16:15:00 2020-11-02 16:15:00 Outpatient R DAVID GARCIA [facility] [id number] [facility] 2020-10-29 10:45:00 2020-10-29 10:45:00 Outpatient R BRIANNA RANDI [facility] [id number] [facility] 2020-10-26 08:00:00 2020-10-26 08:00:00 Outpatient R [address]TONIO [address] [facility] [id number] [facility] 2020-08-19 13:15:00 2020-08-19 13:15:00 Outpatient R DAVID GARC[address] [facility] [id number] [facility] 2020-08-13 14:30:00 2020-08-13 14:30:00 Outpatient R DAVID G[facility] [id number] [facility] 2020-06-05 11:59:00 2020-06-05 11:59:00 Emergency X [facility] ERT [id number] [facility] 2020-05-31 00:00:00 2020-05-31 00:00:00 Patient Secure Msg Doctor Unassigned, Baxter [facility] 1.2.840.114 350.1.13.10 4.2.7.2.686 [id number] [facility] 2020-05-29 00:00:00 2020-05-29 00:00:00 Patient Secure Msg Doctor Unassigned, Baxter [facility] 1.2.840.114 350.1.13.10 4.2.7.2.686 [id number] [facility] Results Test Description Test Time Test Comments Results Result Co mments Source [facility] WITH [id number] 06:15:09* Test Item Value Reference Range Interpretation Comme nts HIV Semi-quantitative (test code = 87910-5) 0.14 Negative FRANCIS (test code = FRANCIS) Non-reactive for HIV-1 antigen and HIV-1/HIV-2 antibodies. ?No laboratory evidence of HIV infection. ?Repeat in 2-4 weeks if acute HIV infection is suspected. [facility] [id number] 05:10:24 * Test Item Value Reference Range Interpretation Comme nts TSH (test code = 3849297245) 2.17 0.45-4.70 Biotin has been reported to cause a negative bias, interpret results relative to patient's use of biotin. Lab Interpretation (test code = 18539-5) Normal [facility] [id number] 16:31:00* Test Item Value Reference Range Interpretation Comme nts POCT PREG (test code = 1605) Negative On board controls acceptable with C Line (test code = 3574) Yes POCT PREG LOT # (test code = 3575) POCT PREG TEST DATE ( test code = 3576) [facility] [id number] 18:11:00* Test Item Value Reference Range Interpretation Comme nts POCT PREG (test code = 1605) Negative On board controls acceptable with C Line (test code = 3574) Yes POCT PREG LOT # (test code = 3575) POCT PREG TEST DATE ( test code = 3576) [facility] [id number] 18:11:00* Test Item Value Reference Range Interpretation Comme nts POCT PREG (test code = 1605) Negative On board controls acceptable with C Line (test code = 3574) Yes POCT PREG LOT # (test code = 3575) POCT PREG TEST DATE ( test code = 3576) [facility] Notes Date/Time Note Provider Source 2023-09-23 10:40:39 Pt given printed and verbal discharge instructions regarding sprain of lateral collateral ligament of right knee, encouraged hydration. Discussed ibuprofen and to take with food to avoid GI distress. Pt verbalized understanding of instructions, pt awake alert oriented, resp reg unlabored, skin w/d, color appropriate for race, moves all ext well,pt encouraged to follow up with pcp and or ortho surgeon. Advised to seek medical attention for new/prolonged/worsening of symptoms. Awake, alert oriented, resp reg unlabored, skin w/d, pt leaving amb with steady gait, in no apparent distress. [facility] 2023-09-23 10:00:00 Patient came in with right knee pain since 1 week now. States she alternately takes Tylenol and Motrin for the pain but no relief, nothing taken today. T Susanna Lewis RN [facility] 2023-09-23 09:56:00 [facility] Emergency Department Note Demographics Patient Name: Connie Peters Date of : 1990 33 year old Treatment Room: [facility] ED [facility] ROSALINO/VENANCIO Primary Care Physician: Antonio Salinas Pre Hospital Care Patient Escorted by: Self [9] Mode of Arrival: Personal means [1] EMS Treatment Prior to ED Arrival: ED Events Date/Time Event User Comments 09/23/23 1002 Medical Screening Begins DAT LAMBERT MD -- 09/23/23 1002 First Provider Evaluation COLE MEREDITH DAT Molina -- Chief complaint Chief Complaint Patient presents with Knee Pain right ED Triage Notes Susanna Lewis, RN 09/23/2023 10:04 Patient came in with right knee pain since 1 week now. States she alternately takes Tylenol and Motrin for the pain but no relief, nothing taken today. Chief Complaint Patient presents with Knee Pain right History of present illness HPI 33-year-old female comes to the emergency department complaining of right knee pain of 1 week duration. Patient denies any injuries or falls. Past medical history significant for asthma, depression and pancreatitis. BP (!) 144/94 | Pulse 89 | Temp 37.2 ?C (98.9 ?F) (Oral) | Resp 15 | Ht 1.549 m (5' 1") | Wt 122.5 kg (270 lb) | SpO2 97% | BMI 51.02 kg/m? Past Medical and Social History Past Medical History: Diagnosis Date Abnormal Pap smear 08/11/2005 colposcopy 5 years ago Anemia 2013 in Anxiety 2014 ongoing, does not take medication Asthma 2020 last episode 2 weeks ago Chronic hypertension affecting 04/19/2021 Resolved per pt, not on meds COVID-19 affecting in third trimester 05/04/2021 Depression 2004 ongoing, does not take medication at this time. Depression, unspecified depression type 08/13/2020 Pancreatitis Tetanus received in last 5 years: Unknown Social History Tobacco Use Smoking status: Former Current packs/day: 0.00 Types: Cigarettes Quit date: 06/21/2012 Years since quittin.2 Smokeless tobacco: Never Substance Use Topics Alcohol use: No Drug use: No Past Surgical History Past Surgical History: Procedure Laterality Date DELIVERY ONLY 02/08/2013 SECTION SECTION 02/08/2013 Surgeon: Gómez Harris MD; Location: LABOR AND DELIVERY - ANNEX SECTION N/A 01/10/2014 Surgeon: Jennifer Crespo MD; Location: LABOR AND DELIVERY - ANNEX SECTION N/A 06/02/2021 Surgeon: Maricarmen Pete MD; Location: LABOR AND DELIVERY [facility] COLPOSCOPY 09/12/2011 Medications Medications - No data to display Allergies Allergies Allergen Reactions Pcn [Penicillins] Rash Review of Systems Review of Systems Constitutional: Negative. HENT: Negative. Eyes: Negative. Respiratory: Negative. Cardiovascular: Negative. Gastrointestinal: Negative. Genitourinary: Negative. Musculoskeletal: Positive for gait problem. Skin: Negative. Psychiatric/Behavioral: Negative. Endocrine: Endocrine negative Physical Exam BP (!) 144/94 | Pulse 89 | Temp 37.2 ?C (98.9 ?F) (Oral) | Resp 15 | Ht 1.549 m (5' 1") | Wt 122.5 kg (270 lb) | SpO2 97% | BMI 51.02 kg/m? Physical Exam Vitals and nursing note reviewed. Constitutional: General: She is not in acute distress. Appearance: She is well-developed and normal weight. She is not ill-appearing. HENT: Head: Normocephalic and atraumatic. Right Ear: External ear normal. Left Ear: External ear normal. Nose: Nose normal. No congestion or rhinorrhea. Mouth/Throat: Pharynx: No oropharyngeal exudate or posterior oropharyngeal erythema. Eyes: General: Right eye: No discharge. Left eye: No discharge. Conjunctiva/sclera: Conjunctivae normal. Pupils: Pupils are equal, round, and reactive to light. Cardiovascular: Rate and Rhythm: Normal rate and regular rhythm. Heart sounds: Normal heart sounds. No murmur heard. No friction rub. Pulmonary: Effort: Pulmonary effort is normal. No respiratory distress. Breath sounds: Normal breath sounds. No stridor. No wheezing or rhonchi. Abdominal: General: Bowel sounds are normal. There is no distension. Palpations: Abdomen is soft. There is no mass. Tenderness: There is no abdominal tenderness. Hernia: No hernia is present. Musculoskeletal: General: Tenderness present. No swelling, deformity or signs of injury. Normal range of motion. Cervical back: Normal range of motion and neck supple. No rigidity or tenderness. Skin: General: Skin is warm. Capillary Refill: Capillary refill takes less than 2 seconds. Coloration: Skin is not jaundiced or pale. Findings: No bruising or erythema. Neurological: General: No focal deficit present. Mental Status: She is alert and oriented to person, place, and time. Cranial Nerves: No cranial nerve deficit. Sensory: No sensory deficit. Motor: No weakness. Coordination: Coordination normal. Psychiatric: Mood and Affect: Mood normal. Behavior: Behavior normal. Thought Content: Thought content normal. Judgment: Judgment normal. Labs and Studies Lab Results - No data to display No orders to display Orders and Treatments No orders of the defined types were placed in this encounter. No orders of the defined types were placed in this encounter. Contact information for follow-up Antonio Salinas WHCNP Specialty: [facility] Relationship: PCP - [facility] [address] [address] Antonio Salinas WHCNP Specialty: [facility] Relationship: PCP - [facility] [address] [address] Patient's Medications START taking these medications No medications on file CONTINUE taking these medications which have NOT CHANGED CYCLOBENZAPRINE 10 MG TABLET Take 1 tablet by mouth 3 (three) times daily as needed for Muscle Spasms. IBUPROFEN 600 MG TABLET Take 1 tablet by mouth every 6 (six) hours as needed for Pain (scale 4-6). VITAMIN W/FA TABLET Take 1 tablet by mouth daily. START taking Modified Medications as Prescribed No medications on file STOP taking these medications No medications on file Procedures Procedures Evidence Care MDM & Notes Patient was evaluated for an emergency medical condition related to Knee Pain (right) . History and/or review of systems is limited by:History limited: None. Medical Decision Making 33-year-old female comes to the emergency department complaining of right knee pain of 1 week duration. Patient denies any injuries or falls. Past medical history significant for asthma, depression and pancreatitis. BP (!) 144/94 | Pulse 89 | Temp 37.2 ?C (98.9 ?F) (Oral) | Resp 15 | Ht 1.549 m (5' 1") | Wt 122.5 kg (270 lb) | SpO2 97% | BMI 51.02 kg/m? DDx: right knee pain, sprain Plan: tylenol/motrin, brace as needed Amount and/or Complexity of Data Reviewed Discussion of management or test interpretation with external provider(s): 33-year-old female comes to the emergency department complaining of right knee pain without any previous injury. Likely sprain of the right knee. Contributing factors I will be a BMI of 51. Advised to continue Tylenol, Motrin applied knee brace as needed, follow-up with orthopedics for further evaluation and treatment. Suspect lateral collateral ligament sprain. Advised to continue medications follow-up with Ortho and return to the emergency department if worsening of symptoms or if any other problems. At this time patient is fully ambulatory as it was no injury no x-ray required at this time if any imaging is required patient will benefit from an MRI on the outpatient basis. Diagnosis/Impression as of 09/23/23 1044 Sprain of lateral collateral ligament of right knee, initial encounter Case discussed with: none Barriers & Social Determinants of Healthcare: none Limitations to patient care and compliance: none. History, physical exam findings, results of visit, differential diagnosis, medication regimens and plan of future care have been considered. Additional MDM may be found in the ED course. Differential diagnosis considered and final disposition made based on information gathered during evaluation and may not be completely ruled out or specifically listed. Vital signs were rechecked before final disposition and determined to be stable. Diagnoses ICD-10-CM 1. Sprain of lateral collateral ligament of right knee, initial encounter S83.421A Disposition and Condition ED Disposition ED Disposition Disch - Home Condition Stable Comment -- Patient's Medications START taking these medications No medications on file CONTINUE taking these medications which have NOT CHANGED CYCLOBENZAPRINE 10 MG TABLET Take 1 tablet by mouth 3 (three) times daily as needed for Muscle Spasms. IBUPROFEN 600 MG TABLET Take 1 tablet by mouth every 6 (six) hours as needed for Pain (scale 4-6). VITAMIN W/FA TABLET Take 1 tablet by mouth daily. START taking Modified Medications as Prescribed No medications on file STOP taking these medications No medications on file Contact information for follow-up Antonio Salinas WHCNP Specialty: [facility] Relationship: PCP - [facility] [address] [facility] [id number] Antonio Salinas WHCNP Specialty: [facility] Relationship: PCP - [facility] [address] [facility] [facility] [id number] Future Appointments In 1 month Antonio Salinas WHCNP [facility], [place], [facility] Ang Dragon Dictation Software is used frequently and may produce errors. Promptly contact for obvious discrepancies. Dat Lambert MD, FACEP, FAAEM Slot Machine Department Floorperson of Emergency and Internal Medicine [facility], [facility] #[id number] Dat Lambert MD 09/23/23 1044 [facility]
[2023-12-30] MEDS ORDERED: MORPHINE 4 MG/ML SYR ONE (15:16)
[2023-12-30 15:26] LABS: Absolute Eosinophils 0.1 K/uL (0-0.5); Absolute Lymphocytes (CBC) 2.1 K/uL (0.7-4.9); Absolute Monocytes 0.5 K/uL (0.1-1.3); Absolute Neutrophil 6.7 K/uL (1.8-8.0); Basophils % 0.3 % (0-1.3); Eosinophils % 0.7 % (0-4.4); Hematocrit 41.1 % (36.0-45.0); Hemoglobin 13.7 g/dL (12.0-15.0); Lymphocytes % 22.7 % (15.3-44.8); MCH 28.2 pg (27.0-35.0); MCHC 33.3 g/dL (32.0-36.0); MCV 84.8 fL (80-100); MPV 8.3 fL (7.6-11.3); Monocytes % 5.4 % (3.3-12.3); Neutrophils % 70.9 % (41.7-73.7); Platelets 279 thou/uL (152-406); RBC Red Blood Cell Count 4.84 M/uL (3.86-4.86); Red Cell Distribution Width 14.4 % (12.1-15.2)
[2023-12-30 15:30] LABS: Albumin 3.5 g/dL (3.4-5.0); Albumin/Globulin Ratio 0.9 (1.1-1.8); Anion Gap 6.6 mEq/L (5.0-15.0); Bilirubin Total 0.5 mg/dL (0.2-1.0); Globulin 3.9 g/dL (2.3-3.5); Potassium 3.6 mEq/L (3.5-5.1); Protein, Total 7.4 g/dL (6.4-8.2)
[2023-12-30 15:33] LABS: Specific Gravity 1.024 (1.005-1.030); Sqamous Epithelial <5 /HPF (None Seen); Urine Bacteria None Seen /HPF (<20); Urine Bilirubin NEGATIVE (Negative); Urine Blood 3+ (Negative); Urine Clarity Turbid (Clear); Urine Color Light-Yellow (Yellow); Urine Culture Reflex Order NOT NEEDED; Urine Glucose NEGATIVE (Negative); Urine Ketones TRACE (Negative); Urine Microscopic Reflex YN ORDER UMIC; Urine Mucus Slight /HPF (None Seen); Urine Nitrite NEGATIVE (Negative); Urine Protein TRACE (Negative); Urine Urobilinogen Normal (Normal); Urine WBC <5 /HPF (<5); Urine pH 5.5 (5.0-7.0)
--- NOTE | 2023-12-30 15:54 | RAD REPORT ---
EXAM DESCRIPTION: CT - Stone Protocol - 12/30/2023 3:45 pm CLINICAL HISTORY: Flank pain. left mid/low back pain COMPARISON: <Comparisons> TECHNIQUE: Axial images were obtained without oral or IV contrast. Lack of contrast limits solid org an and vascular assessment. The [id number] spans the entirety of the system partially obscuring uppermost abdomen and lung bases. Coronal reformatted images were obtained and reviewed. All CT scans are performed using dose optimization technique as appropriate and may include automated exposure control or mA/KV adjustment according to patient size. FINDINGS: The lower lung meza are clear. Imaged portions of the liver and spleen show no suspicious findings on non-contrast imaging. The panc reas and adrenal glands are normal. No pathologic lymphadenopathy in the abdomen or pelvis. No urinary tract stones or obstructive uropathy. No bowel obstruction, free air, free fluid or abscess. Mild sigmoid diverticulosis coli without diver ticulitis. Normal appendix noted.Moderate fat containing ventral hernias. No significant bony abnormality. IMPRESSION: No urinary tract stones or obstructive uropathy. Moderate to large fat containing infraumbilical ventral hernias.
--- NOTE | 2023-12-30 16:12 | RAD REPORT ---
EXAM DESCRIPTION: RAD - Knee Left 3 View - 12/30/2023 4:06 pm CLINICAL HISTORY: PAIN COMPARISON: <Comparisons> FINDINGS: No fracture, dislocation or significant joint effusion seen
--- NOTE | 2023-12-30 16:13 | RAD REPORT ---
EXAM DESCRIPTION: RAD - Knee Right 3 View - 12/30/2023 4:06 pm CLINICAL HISTORY: PAIN COMPARISON: <Comparisons> FINDINGS: No fracture, dislocation or significant joint effusion seen.
[2023-12-30] MEDS ORDERED: METHOCARBAMOL 1,000 MG/10 ML VIAL ONE ×2 (16:49→16:53)
[2023-12-30] MEDS ORDERED: dexAMETHasone 10 MG/ML VIAL ONE (16:49)
[2023-12-30] MEDS ORDERED: KETOROLAC 30 MG/ML INJ ONE (16:50)
[2023-12-30] MEDS ORDERED: NA CHLORIDE 0.9% 100 ML ONE (16:50)
--- NOTE | 2023-12-30 17:38 | EDPHYS ---
Physician Documentation [facility] Name: Connie Peters Age: 33 yrs Sex: Female : 1990 Arrival Date: 12/30/2023 Time: 14:38 Bed 13 Private MD: ED Physician Williams Chowdhury HPI: 12/29 15:00 This 33 yrs old Female presents to ER via EMS with complaints of Back Pain. cp 15:00 The patient presents with pain that is acute. The symptoms are located in the left low cp back/left buttock. Onset: The symptoms/episode began/occurred suddenly, as attempted to get out of car, turned and had immediate back pain. The pain radiates to the left leg. Associated signs and symptoms: Pertinent positives: weakness, Pertinent negatives: abdominal pain, chest pain, dysuria, fever, hematuria, vomiting. Severity of symptoms: in the emergency department the symptoms are unchanged, despite home interventions. Historical: - Allergies: 14:45 PENICILLINS; cm10 - PMHx: 14:45 Asthma; Depression; Hernia; Pancreatitis; Gout; cm10 - PSHx: 14:45 section; Cholecystectomy; cm10 - Immunization history:: Adult Immunizations up to date. - Infectious Disease History:: Denies. - Social history:: Smoking status: Patient denies any tobacco usage or history of. ROS: 15:05 Cardiovascular: Negative for chest pain, edema, palpitations, cp 15:05 Eyes: Negative for injury, pain, redness, and discharge, cp 15:05 Constitutional: Negative for body aches, chills, fever, poor PO intake, 15:05 Neck: Negative for pain with movement, pain at rest, stiffness, 15:05 Respiratory: Negative for cough, shortness of breath, wheezing, 15:05 Abdomen/GI: Negative for abdominal pain, nausea, vomiting, and diarrhea, constipation, bowel incontinence, 15:05 Back: Positive for pain at rest, pain with movement, 15:05 : Negative for urinary symptoms, difficulty urinating, bladder incontinence, 15:05 Neuro: Negative for altered mental status, headache, numbness, tingling, weakness, 15:05 MS/extremity: Positive for pain, of the left knee and right knee, cp 15:05 All other systems are negative, Exam: 15:10 Head/Face: Normocephalic, atraumatic. cp 15:10 Constitutional: The patient appears in no acute distress, alert, awake, non-diaphoretic, non-toxic, well developed, well nourished, obese, in obvious pain, uncomfortable, 15:10 Neck: ROM/movement: is normal, is supple, without pain, no range of motions limitations, 15:10 Chest/axilla: Inspection: normal, 15:10 Cardiovascular: Rate: normal, Rhythm: regular, 15:10 Respiratory: the patient does not display signs of respiratory distress, Respirations: labored breathing, is not present, Breath sounds: are clear throughout, no decreased breath sounds, no stridor, no wheezing, 15:10 Abdomen/GI: Inspection: obese Palpation: abdomen is soft and non-tender, in all quadrants, 15:10 Back: pain, that is severe, of the left low back, ROM is painful, with all movement, 15:10 Neuro: Orientation: to person, place \T\ time. Mentation: is normal, Motor: moves all fours, no focal deficits, Sensation: no obvious gross deficits, Vital Signs: 14:44 BP 113 / 66; Pulse 85; Resp 15; Temp 97.3(IR); Pulse Ox 98% on R/A; Weight 108.86 kg; cm10 Height 5 ft. 1 in. ; Pain 10/10; 16:00 BP 125 / 85; Pulse 89; Resp 16; Pulse Ox 100% on R/A; cm10 17:00 BP 95 / 70; Pulse 68; Resp 16; Pulse Ox 100% ; cm10 17:04 Pain 10/10; cm10 14:44 Body Mass Index 45.35 (108.86 kg, 154.94 cm) cm10 14:44 Pain Scale: Adult cm10 17:04 Pain Scale: Adult cm10 MDM: 14:45 Patient medically screened. murphy 15:15 Differential diagnosis: Pyelonephritis Ureterolithiasis sciatica, lumbago. 17:38 Data reviewed: vital signs, nurses notes, lab test result(s), radiologic studies, CT cp scan, plain films, and as a result, I will discharge patient. 17:38 I considered the following discharge prescriptions or medication management in the emergency department Medications were administered in the Emergency Department. See JUL. 17:38 Counseling: I had a detailed discussion with the patient and/or guardian regarding the cp historical points, exam findings, and any diagnostic results supporting the discharge/admit diagnosis, lab results, radiology results, the need for outpatient follow up, a family practitioner, to return to the emergency department if symptoms worsen or persist or if there are any questions or concerns that arise at home. Response to treatment: the patient's symptoms have markedly improved after treatment, and as a result, I will discharge patient. 12/29 14:47 Order name: CBC with Diff; Complete Time: 16:39 12/29 16:40 Interpretation: Reviewed. 12/29 14:47 Order name: CMP; Complete Time: 16:39 12/29 16:41 Interpretation: Normal except: CL 111; GLOB 3.9; A/G 0.9. 12/29 14:47 Order name: Lipase; Complete Time: 16:39 12/29 14:47 Order name: Urinalysis w/ reflexes; Complete Time: 16:39 12/29 14:47 Order name: Test, Urine; Complete Time: 16:39 12/29 16:44 Interpretation: Reviewed. 12/29 14:47 Order name: XRAY Knee LEFT 3 view; Complete Time: 16:39 12/29 16:39 Interpretation: Report reviewed. 12/29 14:47 Order name: XRAY Knee RIGHT 3 view; Complete Time: 16:39 12/29 16:40 Interpretation: Report reviewed. 12/29 14:47 Order name: CT Stone Protocol; Complete Time: 16:39 12/29 14:47 Order name: IV Saline Lock; Complete Time: 15:00 12/29 14:47 Order name: Labs collected and sent; Complete Time: 15:00 cp Administered Medications: 15:21 Drug: morphine IVP or IV 4 mg IVP once over 4 mins Route: IVP; Infused Over: 4 mins; cm10 Site: left hand; 16:29 Follow up: Response: No adverse reaction; Pain is unchanged, physician notified cm10 17:03 Drug: Ketorolac IVP 15 mg IVP once Route: IVP; Site: left hand; cm10 17:35 Follow up: Response: No adverse reaction cm10 17:03 Drug: Dexamethasone IVP 10 mg IVP once; (not to exceed 40 mg) Route: IVP; Site: left cm10 hand; 17:35 Follow up: Response: No adverse reaction cm10 17:04 Drug: Methocarbamol IVPB 1 grams IVPB once over 1 hrs; (mix in NS 100 mL) Route: IVPB; cm10 Infused Over: 1 hrs; Site: left hand; 18:10 Follow up: Response: No adverse reaction; IV Status: Completed infusion; IV Intake: cm10 100ml 18:21 Not Given (Physician Discretion): morphineor iv 4 mg IVP once over 4 mins kc6 Disposition Summary: 12/30/23 17:38 Discharge Ordered Notes: Location: Home cp Problem: new cp Symptoms: have improved cp Condition: Stable cp Diagnosis - Lumbago with sciatica, left side cp - Pain in left knee cp - Pain in right knee cp Followup: cp - With: Private Physician - When: 2 - 3 days - Reason: Recheck today's complaints Discharge Instructions: - Discharge Summary Sheet cp - Elastic Bandage and RICE Therapy cp - How to Use a Knee Brace cp - Sciatica cp - Acute Knee Pain, Adult cp - Back Exercises cp Forms: - Medication Reconciliation Form cp - Antibiotic Education cp - Prescription Opioid Use cp - Patient Portal Instructions cp - Leadership Thank You Letter cp Prescriptions: - Diclofenac Sodium 75 mg Oral Tablet Sustained Release - take 1 tablet ORAL route 2 times per day; 30 tablet; Refills: 0, Product cp Selection Permitted - Medrol (Freeman) 4 mg Oral Tablets, Dose Pack - take 1 tablet ORAL route as directed - follow package instructions; 1 packet; cp Refills: 0, Product Selection Permitted - methocarbamol 750 mg Oral tablet - take 1 tablet ORAL route every 8 hours; 30 tablet; Refills: 0, Product cp Selection Permitted Addendum: 01/10/2024 04:48 Co-signature as Attending Physician, Williams Chowdhury MD I agree with the assessment and c viramontes plan of care. Signatures: Dispatcher [employer] Williams Hurtado MD MD cha Page, Corey, PA PA cp Martinez, Clarissa, RN RN cm10 Heather Hernández RN kc6 Corrections: (The following items were deleted from the chart) 12/29 14:48 14:48 CBC+H.LAB.BRZ ordered. EDMS EDMS 14:48 14:48 COMPREHENSIVE METABOLIC PANEL+C.LAB.BRZ ordered. EDMS EDMS 14:48 14:48 LIPASE+C.LAB.BRZ ordered. EDMS EDMS 14:48 14:48 Urinalysis+U.LAB.BRZ ordered. EDMS EDMS 14:48 14:48 Test, Urine+UC.LAB.BRZ ordered. EDMS EDMS 16:41 16:39 Normal except: CL 111. cp cp 12/30 18:12 08 15:05 All other systems are negative, cp cp
--- NOTE | 2023-12-30 17:38 | ER ---
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 PT states that the pain cm10 began after she got out of her car. Coronavirus screen: Client denies travel out of the [place] in the last 14 days. At this time, the client does not indicate any symptoms associated with coronavirus-19. Ebola Screen: Patient denies travel to an Ebola-affected area in the 21 days before illness onset. No symptoms or risks identified at this time. Initial Sepsis Screen: Does the patient meet any 2 criteria? No. Patient's initial sepsis screen is negative. Does the patient have a suspected source of infection? No. Patient's initial sepsis screen is negative. Risk Assessment: Do you want to hurt yourself or someone else? Patient reports no desire to harm self or others. Onset of symptoms was December 30, 2023. 14:44 Method Of Arrival: EMS: [facility] 14:44 Acuity: KYM 3 cm10 Triage Assessment: 14:45 General: Appears in no apparent distress. uncomfortable, Behavior is calm, cooperative. cm10 Pain: Complains of pain in back Pain currently is 10 out of 10 on a pain scale. Quality of pain is described as pressure, sharp, Pain began 1 hour ago. Neuro: No deficits noted. Level of Consciousness is awake, alert, obeys commands, Oriented to person, place, time, situation, Appropriate for age. Respiratory: No deficits noted. Airway is patent Respiratory effort is even, unlabored, Respiratory pattern is regular, symmetrical. Musculoskeletal: No deficits noted. Range of motion: intact in all extremities, Reports pain in back. Historical: - Allergies: 14:45 PENICILLINS; cm10 - PMHx: 14:45 Asthma; Depression; Hernia; Pancreatitis; Gout; cm10 - PSHx: 14:45 section; Cholecystectomy; cm10 - Immunization history:: Adult Immunizations up to date. - Infectious Disease History:: Denies. - Social history:: Smoking status: Patient denies any tobacco usage or history of. Screenin:46 [facility] ED Fall Risk Assessment (Adult) History of falling in the last 3 months, cm10 including since admission No falls in past 3 months (0 pts) Confusion or Disorientation No (0 pts) Intoxicated or Sedated No (0 pts) Impaired Gait No (0 pts) Mobility Assist Device Used No (0 pt) Altered Elimination No (0 pt) Score/Fall Risk Level 0 - 2 = Low Risk Oriented to surroundings, Maintained a safe environment, Hourly rounding (assess needs \T\ fall precautionary measures) done. Abuse screen: Denies threats or abuse. Denies injuries from another. Nutritional screening: No deficits noted. Tuberculosis screening: No symptoms or risk factors identified. Assessment: 16:29 Reassessment: Patient appears in no apparent distress at this time. No changes from cm10 previously documented assessment. Patient and/or family updated on plan of care and expected duration. Pain level reassessed. Patient is alert, oriented x 3, equal unlabored respirations, skin warm/dry/pink. 17:46 General: awaiting completion of medication for discharge.. cm10 Vital Signs: 14:44 BP 113 / 66; Pulse 85; Resp 15; Temp 97.3(IR); Pulse Ox 98% on R/A; Weight 108.86 kg; cm10 Height 5 ft. 1 in. ; Pain 10/10; 16:00 BP 125 / 85; Pulse 89; Resp 16; Pulse Ox 100% on R/A; cm10 17:00 BP 95 / 70; Pulse 68; Resp 16; Pulse Ox 100% ; cm10 17:04 Pain 10/10; cm10 14:44 Body Mass Index 45.35 (108.86 kg, 154.94 cm) cm10 14:44 Pain Scale: Adult cm10 17:04 Pain Scale: Adult cm10 ED Course: 14:43 Patient arrived in ED. cm10 14:44 Williams Bennett PA is PHCP. cp 14:44 Williams Chowdhury MD is Attending Physician. cp 14:45 Triage completed. cm10 14:46 Arm band placed on Patient placed in an exam room, on a stretcher. cm10 14:46 Patient has correct armband on for positive identification. Bed in low position. Call cm10 light in reach. Side rails up X2. Provided Education on: ER process and procedures.. Cardiac monitoring not applicable on this patient. 14:47 An Ortega, RN is Primary Nurse. cm10 15:00 Initial lab(s) drawn, by me, sent to lab. Inserted saline lock: 20 gauge in left hand, cm10 using aseptic technique. Blood collected. Flushed with 10 mL NS. 15:00 CBC with Diff Sent. cm10 15:00 CMP Sent. cm10 15:00 Lipase Sent. cm10 15:47 CT Stone Protocol In Process Unspecified. EDMS 16:07 XRAY Knee LEFT 3 view In Process Unspecified. EDMS 16:07 XRAY Knee RIGHT 3 view In Process Unspecified. EDMS 18:28 No provider procedures requiring assistance completed. IV discontinued, intact, kc6 bleeding controlled, No redness/swelling at site. Pressure dressing applied. Administered Medications: 15:21 Drug: morphine IVP or IV 4 mg IVP once over 4 mins Route: IVP; Infused Over: 4 mins; cm10 Site: left hand; 16:29 Follow up: Response: No adverse reaction; Pain is unchanged, physician notified cm10 17:03 Drug: Ketorolac IVP 15 mg IVP once Route: IVP; Site: left hand; cm10 17:35 Follow up: Response: No adverse reaction cm10 17:03 Drug: Dexamethasone IVP 10 mg IVP once; (not to exceed 40 mg) Route: IVP; Site: left cm10 hand; 17:35 Follow up: Response: No adverse reaction cm10 17:04 Drug: Methocarbamol IVPB 1 grams IVPB once over 1 hrs; (mix in NS 100 mL) Route: IVPB; cm10 Infused Over: 1 hrs; Site: left hand; 18:10 Follow up: Response: No adverse reaction; IV Status: Completed infusion; IV Intake: cm10 100ml 18:21 Not Given (Physician Discretion): morphineor iv 4 mg IVP once over 4 mins kc6 Medication: 14:46 VIS not applicable for this client. cm10 Intake: 18:10 IV: 100ml; Total: 100ml. cm10 Outcome: 17:38 Discharge ordered by . cp 18:28 Discharged to home via wheelchair, with significant other, kc6 18:28 Condition: good 18:28 Discharge instructions given to patient, significant other, Instructed on discharge instructions, follow up and referral plans. no drinking with medication, no driving heavy equipment, medication usage, Demonstrated understanding of instructions, follow-up care, medications, Prescriptions given X 3, 18:28 Patient left the ED. kc6 Signatures: Dispatcher [employer] EDMS Williams Bennett PA PA cp Campbell, Kaitlyn, RN RN kc6 An Ortega RN RN cm10 Corrections: (The following items were deleted from the chart) 17:47 14:44 Acuity: KYM 4 cm10 cm10
[2023-12-30 18:41] VITALS: TEMP 97.3
[2023-12-30 18:43] VITALS: O2SAT 100
[2023-12-30 18:44] VITALS: BP 95/70
== END 2023-12-30 18:28 | disposition home or self-care (01) ==
LOC: ER 14:38
DX: M54.42 Lumbago with sciatica, left side (principal); M25.562 Pain in left knee; M25.561 Pain in right knee
CPT/HCPCS: 36415; 74176; 76377; 80053; 81001; 81025; 83690; 85025; 96365; 96375; 99284; J1100; J2800